=== PATIENT | female | born 1955 | race Caucasian/White ===

== ENCOUNTER → 2018-05-11 15:10 | Outpatient (CLI) | payer OTHER, SELFPAY | PROVIDERS: Family Provider Family Medicine; PCP Family Medicine; Visit Provider Nurse Practitioner Women's Health | DX: Z12.31 Encounter for screening mammogram for malignant neoplasm of breast (principal) | CPT/HCPCS: 77063; 77067 ==

== ENCOUNTER → 2018-07-24 14:36 | Outpatient (CLI) | payer OTHER, SELFPAY ==
--- NOTE | 2018-07-24 14:38 | US_ITS ---
STUDY: RENAL ULTRASOUND - COMPLETE REASON FOR EXAM: Female, 63 years old. Urinary retention, neurogenic bladder TECHNIQUE: Ultrasound evaluation of the kidneys was performed with real-time and static alvarez-scale imaging. COMPARISON: None. FINDINGS: RIGHT KIDNEY: Normal location of the right kidney, which is normal in size. The right kidney measures 9.3 cm. There is a normal cortex of the right kidney. The renal cortex measures 1.1 cm. There is no right renal mass or cyst. 2 small nonobstructing renal calculi, largest measuring 6 mm. There is no right hydronephrosis. DISTAL RIGHT URETER: There is non-visualization of the distal right ureter. There is no demonstrated right ureterovesical junction calculus. There is a visualized right ureteral jet. LEFT KIDNEY: Normal location of the left kidney, which is normal in size. The left kidney measures 8.7 cm. There is a normal cortex of the left kidney. The renal cortex measures 1.0 cm. Midpole anechoic cyst measuring 1.5 cm. 2 calculi, largest measuring 4 mm. No obstruction. There is no left hydronephrosis. DISTAL LEFT URETER: There is non-visualization of the distal left ureter. There is no demonstrated left ureterovesical junction calculus. There is a visualized left ureteral jet. BLADDER: The distended urinary bladder has a volume of 300 ml. The empty urinary bladder has a volume of 261 ml. There is trabeculation with thickening of the wall of the urinary bladder. There is no demonstrated mass within the urinary bladder. There are no demonstrated bladder calculi. US/Kidney and Bladder IMPRESSION: Significant postvoid residual. Wall thickening with bladder wall trabeculation. Bilateral nonobstructing renal calculi. Anechoic left renal cyst Electronically Signed: Francisco Glass DO at 14:21 EDT Tel , Service support ,
== END ==
PROVIDERS: Family Provider Family Medicine; PCP Family Medicine; Referring Provider Urology; Visit Provider Urology
DX: N31.9 Neuromuscular dysfunction of bladder, unspecified (principal); R33.9 Retention of urine, unspecified
CPT/HCPCS: 76770

== ENCOUNTER → 2018-08-09 16:39 | Outpatient (CLI) | payer OTHER, SELFPAY ==
--- NOTE | 2018-08-09 16:44 | EKG12_ITS ---
Test Reason : CARDIAC ARRHYTHMIA Blood Pressure : / mmHG Vent. Rate : 095 BPM Atrial Rate : 095 BPM P-R Int : 154 ms QRS Dur : 086 ms QT Int : 366 ms P-R-T Axes : 060 037 063 degrees QTc Int : 459 ms Sinus rhythm with frequent Premature ventricular complexes Otherwise normal ECG Confirmed by ZHANG BAKER, VLADIMIR ([id number]), film or videotape editor ANTOINETTE FRANCISCO ([id number]) on 08/10/2018 9:00:55 AM Referred By: Jessica Christianson Confirmed By:VLADIMIR HOLCOMB MD
== END ==
PROVIDERS: Family Provider Family Medicine; PCP Family Medicine; Referring Provider Urology; Visit Provider Urology
DX: I49.9 Cardiac arrhythmia, unspecified (principal)
CPT/HCPCS: 93005

== ENCOUNTER → 2019-03-26 | Outpatient (CLI) | payer OTHER, SELFPAY ==
--- NOTE | 2019-03-26 14:58 | US_ITS ---
STUDY: RENAL ULTRASOUND - COMPLETE REASON FOR EXAM: Female, 63 years old. Hydronephrosis TECHNIQUE: Ultrasound evaluation of the kidneys was performed with real-time and static alvarez-scale imaging. COMPARISON: Renal ultrasound from 07/23/2018 FINDINGS: RIGHT KIDNEY: Normal location of the right kidney, which is normal in size. The right kidney measures 13.4 x 8 x 7.6 cm. The renal cortex measures 0.6 cm. There are multiple right renal anechoic cystic areas . Compared to prior examination when the right kidney demonstrated normal reniform morphology and no renal cysts. There are no definite right renal calculi. DISTAL RIGHT URETER: There is non-visualization of the distal right ureter. There is no demonstrated right ureterovesical junction calculus. There is a visualized right ureteral jet. LEFT KIDNEY: Normal location of the left kidney, which is normal in size. The left kidney measures 10.1 x 4.8 x 4.5 cm. There is a normal cortex of the left kidney. The renal cortex measures 1.2 cm. There are multiple left renal cysts largest measuring 1.6 x 1.8 x 1.4 cm and additional measuring 1.2 x 1.2 x 0.7 cm. There are no left renal calculi. There is no left hydronephrosis. DISTAL LEFT URETER: There is non-visualization of the distal left ureter. There is no demonstrated left ureterovesical junction calculus. There is a visualized left ureteral jet. BLADDER: The distended urinary bladder has a volume of 374 ml. There is a normal wall thickness of the distended urinary bladder. There is no demonstrated mass within the urinary bladder. There are no demonstrated bladder calculi. US/Kidney and Bladder IMPRESSION: new right renal cortical thinning with also new anechoic cystic areas concerning for underlying marked hydronephrosis and dilated calyces. This is new from comparison renal ultrasound from 2018. Right ureteral jet is visualized however correlation with repeat CT abdomen and pelvis recommended. Multiple anechoic left renal simple appearing cysts. Electronically Signed: Marquis Cunningham, at 0:57 EDT Tel , Service support ,
== END | disposition home or self-care (01) ==
LOC: US 14:57
PROVIDERS: Family Provider Family Medicine; PCP Family Medicine; Referring Provider Urology; Visit Provider Urology
DX: N13.30 Unspecified hydronephrosis (principal)
CPT/HCPCS: 76770

== ENCOUNTER → 2019-04-11 | Outpatient (CLI) | payer OTHER, SELFPAY ==
--- NOTE | 2019-04-11 17:50 | CT_ITS ---
STUDY: CT ABDOMEN AND PELVIS WITHOUT CONTRAST REASON FOR EXAM: Female, 64 years old. Hydronephrosis RADIATION DOSAGE (If Supplied By Facility): CTDIvol = ( 7.03 ) mGy, DLP = ( 314.43 ) mGycm TECHNIQUE: Transaxial images were obtained from the dome of the diaphragm to the symphysis pubis without oral contrast, and without intravenous contrast. Sagittal and coronal images were reconstructed. Individualized dose optimization techniques were used for this CT. COMPARISON: None. FINDINGS: The visualized lung bases are unremarkable. The visualized portions of the heart are within normal limits. Normal liver. Normal gallbladder and extrahepatic biliary system. Normal spleen. Normal pancreas. Normal bilateral adrenal glands. Large parapelvic cysts or hydronephrosis of the right kidney. Extrarenal pelvis and probable upper pole parapelvic 1.3 cm cyst in the left kidney. Prominent hiatal hernia. Normal small intestine. Diffuse moderate fecal retention in the colon. Questionable rectal wall thickening. The appendix is visualized and appears normal. Normal abdominal aorta. Normal inferior vena cava. Normal retroperitoneum. Mild wall thickening of the urinary bladder. Normal abdominal wall. There is sacral injury with presacral soft tissue density, of questionable age. Mild degenerative vertebral changes and scoliosis. CT/Abdomen/Pelvis without Cont IMPRESSION: Large parapelvic cysts versus hydronephrosis of the right kidney. Extrarenal pelvis and probable upper pole parapelvic cyst in the left kidney. Hiatal hernia. Diffuse colonic fecal retention. Possible rectal wall thickening. Sacral injury of questionable age. Mild wall thickening of the urinary bladder. Electronically Signed: Shay Mondragon DO at 23:26 EDT Tel [phone], Service support ,
== END | disposition home or self-care (01) ==
PROVIDERS: Family Provider Family Medicine; PCP Family Medicine; Referring Provider Urology; Visit Provider Urology
DX: N28.1 Cyst of kidney, acquired (principal); N13.30 Unspecified hydronephrosis
CPT/HCPCS: 74176

== ENCOUNTER → 2019-04-30 | Outpatient (CLI) | payer OTHER, SELFPAY ==
[2019-04-24 14:36] VITALS: BMI 24.7
== END | disposition home or self-care (01) ==
LOC: PSN 13:56
PROVIDERS: Family Provider Family Medicine; PCP Family Medicine; Referring Provider Internal Medicine Cardiovascular Disease; Visit Provider Internal Medicine Cardiovascular Disease
DX: I49.3 Ventricular premature depolarization (principal); I10 Essential (primary) hypertension
CPT/HCPCS: 93225; 93226

== ENCOUNTER → 2019-05-04 13:55 | Outpatient (CLI) | payer OTHER, SELFPAY ==
[2019-04-24 14:36] VITALS: BMI 24.7
--- NOTE | 2019-05-04 13:56 | ECHOD_ITS ---
Reason For Study: Arrhythmia Procedure This was a 2D Doppler, Color Flow transthoracic echocardiogram. Myocardial strain analysis was performed in this exam to aid in the assessment of cardiac function. Exam performed in department. Left Ventricle Normal size and thickness. The estimated ejection fraction is 45-50 %. Stage 1 diastolic dysfunction. There is mild global hypokinesis of the left ventricle. Right Ventricle Normal size and thickness. Normal systolic function. Atria The left atrium is mildly enlarged. Normal right atrium. Normal atrial septum. Mitral Valve The mitral valve is structurally normal. No prolapse or stenosis seen. Trivial mitral valve insufficiency. Tricuspid Valve Normal tricuspid valve. Trivial tricuspid valve insufficiency. Right ventricular systolic pressure estimated to be 22 mmHg. Aortic Valve Trisinus/trileaflet aortic valve. Normal aortic valve. Pulmonic Valve Normal pulmonic valve. Trivial pulmonic valve insufficiency. Great Vessels Normal aortic root. Normal arch. Normal inferior vena cava. Inferior vena cava collapse with sniff. Pericardium/Pleural No pericardial effusion. MMode/2D Measurements & Calculations LVIDd: 4.6 cm IVSd: 1.0 cm Ao root diam: 2.8 cm LVIDs: 3.5 cm LVPWd: 1.1 cm RVDd: 3.2 cm FS: 24.2 % LAV(MOD-bp): 65.0 ml EDV(MOD-sp4): 99.0 ml EDV(MOD-sp2): 81.4 ml LAV(MOD-bp) Indexed: 34.3 ml/m2 ESV(MOD-sp4): 52.0 ml EF(MOD-sp2): 43.0 % LAV(MOD-sp2): 46.3 ml EF(MOD-sp4): 47.5 % LAV(MOD-sp4): 74.5 ml SV(MOD-sp4): 47.0 ml SV(MOD-sp2): 35.0 ml LA A4 area: 23.0 cm2 LA dimension(2D): 3.8 cm RA A4 area: 11.9 cm2 Doppler Measurements & Calculations MV E max reddy: 71.0 cm/sec Lat Peak E' Reddy: 5.2 cm/sec Med Peak E' Reddy: 4.1 cm/sec MV A max reddy: 104.6 cm/sec E/E' lat: 13.6 E/E' med: 17.2 MV E/A: 0.68 Ao V2 max: 134.5 cm/sec LV V1 max: 89.4 cm/sec PA V2 max: 79.2 cm/sec Ao max P.2 mmHg LV V1 max P.2 mmHg TR max reddy: 206.9 cm/sec TR max P.1 mmHg Interpretation Summary The estimated ejection fraction is 45-50 %. Stage 1 diastolic dysfunction. There is mild global hypokinesis of the left ventricle. The left atrium is mildly enlarged. Trivial mitral valve insufficiency. Trivial tricuspid valve insufficiency. Right ventricular systolic pressure estimated to be 22 mmHg. There is no comparison study available. Ordering Physician: Moustapha Rogers Referring Physician: Jose L De La Cruz Performed By: Kiki Sainz RDCS
== END ==
PROVIDERS: Family Provider Family Medicine; PCP Family Medicine; Referring Provider Internal Medicine Cardiovascular Disease; Visit Provider Internal Medicine Cardiovascular Disease
DX: Z01.810 Encounter for preprocedural cardiovascular examination (principal); I12.9 Hypertensive chronic kidney disease with stage 1 through stage 4 chronic kidney disease, or unspecified chronic kidney disease; I49.3 Ventricular premature depolarization; N18.9 Chronic kidney disease, unspecified
CPT/HCPCS: 93306

== ENCOUNTER → 2019-05-08 13:07 | Outpatient (CLI) | payer OTHER, SELFPAY ==
[2019-04-24 14:36] VITALS: BMI 24.7
--- NOTE | 2019-05-08 13:09 | STE_ITS ---
Reason For Study: HTN, ARRHYTHMIA, PRE-OP Stress Results Protocol: Dobutamine Stress Echocardiogram Maximum Predicted HR: 155 bpm Target HR: 132 bpm % Maximum Predicted HR: 86 % Heart Stage Duration Rate BP Dose Comment (mm:ss) (bpm) 1 NTG 0.4 MG SL GIVEN @ 1335 BP 183/103, 1 NTG 0.4 MG SL GIVEN BASELINE 82 159/90 AT 1342 BP 165/105, 1 NTG O.4 MG SL GIVEN AT 1355 BP 171/91 PER ORDERS DSE- 10 MCG 3:34 75 188/93550.00NO SX DSE- 20 MCG 3:14 134 171/99952.00NO SX RECOVERY 89 178/96 DENIES COMPLAINT. RARE PVCS, VENTRICULAR TRIGEMINY. Stress Duration: 6:48 mm:ss Maximum Stress HR: 134 bpm Baseline Echocardiogram Findings The estimated ejection fraction is 65 %. Stress Echo Wall motion Data Resting WM Intermediate WM Stress WM Resting Wall Motion Wall Motion Stress No regional wall motion No regional wall motion abnormalities noted. abnormalities noted. EKG Data The baseline ECG displays normal sinus rhythm. The patient was titrated from 10 mcg to a maximum of 20 mcg of dobutamine during the stress. The maximum heart rate attained was 134 beats per minute. This was 86% of maximum predicted heart rate. At peak infusion, upsloping ST changes only were noted, which did not meet the criteria for ischemia. No clinical angina was noted. Interpretation Summary The estimated ejection fraction is 65 %. Normal, adequate, dobutamine echocardiogram. Negative for ischemia by EKG and echocardiographic criteria. No anginal symptoms noted. Rare PVCs noted. Hypertensive blood pressure response to dobutamine. Final LVEF of 75%. Test terminated due to attainment of target heart rate. No complications. Ordering Physician: Moustapha Rogers Referring Physician: Moustapha Rogers Performed By: Kiki Sainz RDCS
== END ==
PROVIDERS: Family Provider Family Medicine; PCP Family Medicine; Referring Provider Internal Medicine Cardiovascular Disease; Visit Provider Internal Medicine Cardiovascular Disease
DX: Z01.810 Encounter for preprocedural cardiovascular examination (principal); I10 Essential (primary) hypertension; I49.3 Ventricular premature depolarization
CPT/HCPCS: 93017; 93350; J7040; A4216

== ENCOUNTER → 2019-05-22 | Outpatient (CLI) | payer OTHER, SELFPAY ==
[2019-05-15 14:22] VITALS: BMI 25.0
[2019-05-22 17:52] LABS: Anion Gap 6 (5-15); BUN 30 mg/dL (7-18); BUN/Creat Ratio 17.6 RATIO (10-20); Calcium,Total 8.6 mg/dL (8.5-10.1); Chloride 108 mmol/L (98-107); EST Glomerular Filtration Rate 32 mL/min (>60); Est Glom Filt Rate - Afr Amer 39 mL/min (>60); Glucose 91 mg/dL (74-106); Sodium Level 143 mmol/L (136-145)
== END | disposition home or self-care (01) ==
LOC: MTLAB 15:51
PROVIDERS: Family Provider Family Medicine; PCP Family Medicine; Referring Provider Urology; Visit Provider Urology
DX: N13.30 Unspecified hydronephrosis (principal)
CPT/HCPCS: 36415; 80048

== ENCOUNTER 2019-05-29 06:02 | Day surgery (SDC) | payer OTHER, SELFPAY ==
[2019-05-15 14:22] VITALS: BMI 25.0
[2019-05-29 06:42] VITALS: BP 141/67; PULSE 59; RESP 16; TEMP 37.1; O2SAT 99; BMI 24.9
[2019-05-29] MEDS: Lactated Ringers 1,000 ML 100 ML IV (07:00)
[2019-05-29] MEDS: Cefazolin 2 GM in 0.9% Normal Saline 100 ML IV (07:30)
--- NOTE | 2019-05-29 07:35 | OP.PCM_ITS ---
Problem List (1) Neurogenic bladder Status: Acute (2) Urinary retention Status: Acute (3) Hydronephrosis of right kidney Status: Acute Report of Operation Date of Procedure: 05/29/19 Pre-Operative Diagnosis: right hydronephrosis, neurogenic bladder, urinary retention Post-Operative Diagnosis: right ureteral stricture with hydroureteronephrosis, neurogenic bladder and urinary retention Surgery/Procedure Performed:: cystoscopy, bilateral retrograde pyelograms, right Description of Surgical Findings:: Right ureteral stricture likely 1.5 cm in length, at the area of the pelvic brim. Unable to fill the kidney with contrast for full retrograde pyelogram. Unable to pass wire through the stricture. 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 She has a neurogenic bladder as a result of this. I have been following her with annual renal ultrasounds. She had a normal ultrasound in May 2018. She was subsequently admitted to the hospital at an outlying institution in January. On follow-up, her renal imaging showed concern for right-sided hydronephrosis but due to her creatinine I was unable to obtain imaging with contrast. Following cardiac clearance, we proceeded with retrograde pyelograms today. Informed consent was obtained. Patient was taken to the operating room and placed on the operating room table. Anesthesia monitored the head, neck, airway, IV access and vital signs throughout the case. Once anesthesia was appropriately administered the patient was placed into dorsal lithotomy position and was prepped and draped in usual sterile fashion. A cystourethroscopy revealed a small bladder without mass. The ureteral orifices were located on the area of the trigone. I was unable to coapt the UO with a 8 Salvadorean cone-tip catheter, and inserted a 5 Salvadorean whistle- tip into the distal ureter. Contrast was injected in retrograde fashion revealing a stricture of the right ureter at the area of the pelvic brim. The strictured area was approximately 1.5 cm in length. I next attempted to pass a 0.035 Glidewire through the stricture and was unable to do so. A left-sided retrograde pyelogram was performed revealing no evidence of ureteral narrowing and the calyces were nice and sharp and an extrarenal pelvis was present. At this time the patient's bladder was emptied and the case was terminated. She was taken to the recovery room in good condition. There were no complications during the procedure. - Complications None - Admit VTE Documentation VTE Present on Admission: Yes VTE Mechan Device Prophylaxis: SCD's VTE Pharm Prophylaxis ordered?: No Reason prophylaxis not ordered:: Treatment Not Indicated
--- NOTE | 2019-05-29 07:37 | DCINST_ITS ---
Discharge Diet: No Restrictions Discharge Activity: May not drive while taking narcotic pain medications. Call your doctor if you observe: Fever of 101 or Higher, Shortness of breath, Chest pain, Calf discomfort, Uncontrolled pain Allergies/Adverse Reactions: Allergies sulfamethoxazole [From Bactrim] Allergy (Mild, Verified 05/22/19 14:54) itchy, swollen lips trimethoprim [From Bactrim] Allergy (Mild, Verified 05/22/19 14:54) itchy, swollen lips Medications to take at Discharge colestipol 1 gram tablet 2 g PO BID tab 05/11/18 cranberry 400 mg capsule 400 mg PO DAILY 05/11/18 lactobacillus combination no.9 4 billion cell capsule 4,000 mmu cells PO QDAY 05/11/18 Cephalexin [Keflex] 250 mg PO DAILY 04/24/19 carvedilol 25 mg tablet 25 mg PO BID #60 tab 04/24/19 Primary Care Physician: Jose L De La Cruz [Primary Care Provider] - Test Results: Test results from this visit will be discussed in further detail at your follow- up appointment, if applicable. Please Follow Up With: Jessica Christianson MD When: call for appt Proposed Discharge Date: 05/29/19
[2019-05-29 08:06] VITALS: BP 121/66; BP 141/67; PULSE 76; RESP 14; TEMP 36.3; O2SAT 98
[2019-05-29 08:15] VITALS: BP 133/70; BP 141/67; PULSE 72; RESP 14; O2SAT 97
[2019-05-29 08:24] VITALS: BP 141/67; BP 145/76; PULSE 71; RESP 14; TEMP 36.3; O2SAT 98
[2019-05-29 09:11] VITALS: BP 141/67; BP 160/56; PULSE 66; RESP 16; TEMP 36.9; O2SAT 99
== END 2019-05-29 09:27 | disposition home or self-care (01) ==
LOC: SDC 06:05 → AC 06:06
PROVIDERS: Family Provider Family Medicine; PCP Family Medicine; Referring Provider Urology; Visit Provider Urology
PROC: 0TJ98ZZ Inspection of Ureter, Via Natural or Artificial Opening Endoscopic (ICD-10-PCS; CPT 52352; principal; 2019-05-29 07:20)
DX: N13.1 Hydronephrosis with ureteral stricture, not elsewhere classified (principal); N31.9 Neuromuscular dysfunction of bladder, unspecified; R33.8 Other retention of urine; E78.00 Pure hypercholesterolemia, unspecified; I10 Essential (primary) hypertension; Z85.038 Personal history of other malignant neoplasm of large intestine; Z86.718 Personal history of other venous thrombosis and embolism; Z87.442 Personal history of urinary calculi; Z79.899 Other long term (current) drug therapy
CPT/HCPCS: 00910; 52005; 76000; J7120; C1758; C1769; J2405

== ENCOUNTER → 2020-05-22 12:01 | Outpatient (CLI) | payer OTHER, MEDICARE, SELFPAY ==
--- NOTE | 2020-05-22 12:05 | BI_ITS ---
MAMMOGRAPHY - BILATERAL SCREENING REASON FOR EXAM: Female, 65 years old. Routine annual screening examination. PERTINENT HISTORY: Non-contributory. TECHNIQUE: Digital bilateral breast danielle (3D mammographic acquisition) in the CC and MLO projections. 2-D mediolateral oblique (MLO) and craniocaudad (CC) views of both breasts were obtained. CAD: Full Field Digital Mammography with Computer Added Detection was performed. COMPARISON: Comparison is made with prior study dated 05/11/2018 and 05/03/2017. FINDINGS: Breast Composition: There are scattered areas of fibroglandular density. There are no dominant masses or suspicious calcifications. No other significant abnormalities are identified. There has been no significant change since the prior study. BI/SCREEN MAMM (CAD) W/DANIELLE BILAT IMPRESSION: Stable bilateral screening mammogram. Yearly follow-up mammogram recommended. (A) ASSESSMENT CATEGORY: BIRADS Category 1: Negative. A letter regarding these results will be sent to the patient by the facility within 30 days. Approximately 10% of breast cancers are not detected by mammography. A normal mammogram should not delay biopsy of a clinically suspicious abnormality. [id number] Electronically Signed: Rikki Bustamante, at 13:09 EDT , Service support ,
== END ==
PROVIDERS: Family Provider Family Medicine; PCP Family Medicine; Referring Provider Nurse Practitioner Women's Health; Visit Provider Nurse Practitioner Women's Health
DX: Z12.31 Encounter for screening mammogram for malignant neoplasm of breast (principal)
CPT/HCPCS: 77063; 77067

== ENCOUNTER → 2020-12-18 13:44 | Outpatient (CLI) | payer MEDICARE, SELFPAY ==
[2020-06-10 09:52] VITALS: BMI 24.9
--- NOTE | 2020-12-18 14:00 | US_ITS ---
STUDY: RENAL ULTRASOUND - COMPLETE REASON FOR EXAM: Female, 65 years old. UTI/FLANK PAIN TECHNIQUE: Ultrasound evaluation of the kidneys was performed with real-time and static alvarez-scale imaging. COMPARISON: None. FINDINGS: RIGHT KIDNEY: Normal location of the right kidney, which is normal in size. The right kidney measures 13.4 x 8.0 x 7.6 cm. There is diffuse thinning of the renal cortex. The renal cortex measures 0.6 cm. Multiple round anechoic structure consistent with simple renal cysts demonstrate largest measuring 7.5 x 7.1 x 5.8 cm. Differential diagnosis includes chronic severe hydronephrosis. These findings are stable in the interval. There are no right renal calculi. There is no right hydronephrosis. DISTAL RIGHT URETER: There is non-visualization of the distal right ureter. There is no demonstrated right ureterovesical junction calculus. There is a visualized right ureteral jet. LEFT KIDNEY: Normal location of the left kidney, which is normal in size. The left kidney measures 10.1 x 4.8 x 4.5 cm. There is a normal cortex of the left kidney. The renal cortex measures 1.2 cm. Within the left kidney and there are 2 round anechoic structure consistent with cysts, measuring 1.6 x 1.8 x 1.4 cm and 1.2 x 1.2 x 0.7 cm. There are no left renal calculi. There is no left hydronephrosis. DISTAL LEFT URETER: There is non-visualization of the distal left ureter. There is no demonstrated left ureterovesical junction calculus. There is a visualized left ureteral jet. BLADDER: The urinary bladder has a volume of 374.2 ml There is a normal wall thickness of the distended urinary bladder. There is no demonstrated mass within the urinary bladder. There are no demonstrated bladder calculi. US/Kidney and Bladder IMPRESSION: Chronic severe right-sided hydronephrosis versus large cysts within the right kidney as described above and largest cystic structure measuring 7.5 x 7.1 x 5.8 cm. Thinning of the right renal cortex suggestive of renal atrophy, stable in the interval. Left-sided renal cysts as described. Otherwise unremarkable left kidney. Electronically Signed: Samina Bello MD at 1:59 EDT , Service support ,
== END ==
PROVIDERS: PCP Family Medicine; Referring Provider Urology; Visit Provider Urology
DX: N39.0 Urinary tract infection, site not specified (principal); R10.9 Unspecified abdominal pain
CPT/HCPCS: 76770; 87493

== ENCOUNTER → 2022-01-19 | Outpatient (CLI) | payer MEDICARE, SELFPAY ==
--- NOTE | 2022-01-19 11:56 | US_ITS ---
STUDY: RENAL ULTRASOUND - COMPLETE REASON FOR EXAM: Female, 66 years old. UTI TECHNIQUE: Ultrasound evaluation of the kidneys was performed with real-time and static alvarez-scale imaging. COMPARISON: 12/18/2020 FINDINGS: RIGHT KIDNEY: Normal location of the right kidney, which is hypertrophic. The right kidney measures 16.9 x 7.7 x 8 cm. There is diffuse thinning of the renal cortex. The renal cortex measures 0.8 cm. There is dilatation of the renal calyces consistent with long-standing hydronephrosis and obstruction. Although the knock up assembler states there is no hydronephrosis, a CT scan from 2019 suggests otherwise at that time there was already significant cortical thinning and distention of the calyces, UPJ and right ureter. DISTAL RIGHT URETER: There is non-visualization of the distal right ureter. There is no demonstrated right ureterovesical junction calculus. There is a visualized right ureteral jet. LEFT KIDNEY: Normal location of the left kidney, which is normal in size. The left kidney measures 10.7 x 4.0 x 6.5 cm. There is a normal cortex of the left kidney. The renal cortex measures 1.7 cm. There are 2 separate simple cysts, larger measures 2.6 cm There are no left renal calculi. There is an extra-renal pelvis of the left kidney. There is no distention of the renal calyces. DISTAL LEFT URETER: There is non-visualization of the distal left ureter. There is no demonstrated left ureterovesical junction calculus. There is a visualized left ureteral jet. AORTA: There is no elongation or tortuosity of the abdominal aorta. I.V.C.: The IVC is patent. BLADDER: The bladder is incompletely distended US/Kidney and Bladder IMPRESSION: Right kidney is hypertrophic and shows long-standing dilatation of the calyces and UPJ unchanged from a CT scan from 2019. There is diffuse cortical thinning. Etiology for the long-standing obstruction is not clear on this study. The knock up assembler notes 2 separate simple cysts but I suspect these are the dilated calyces. Extrarenal pelvis in the left kidney with simple left renal cysts. No obstructive uropathy in the left kidney. Electronically Signed: Lamont Matson MD at 16:33 EDT ,
== END | disposition home or self-care (01) ==
LOC: US 11:55
PROVIDERS: PCP Family Medicine; Referring Provider Urology; Visit Provider Urology
DX: N39.0 Urinary tract infection, site not specified (principal)
CPT/HCPCS: 76770

== ENCOUNTER → 2022-04-02 | Outpatient (CLI) | payer MEDICARE, SELFPAY ==
--- NOTE | 2022-04-02 13:05 | BI_ITS ---
MAMMOGRAPHY - BILATERAL SCREENING REASON FOR EXAM: Female, 67 years old. Routine annual screening examination. PERTINENT HISTORY: Non-contributory. TECHNIQUE: Digital bilateral breast danielle (3D mammographic acquisition) in the CC and MLO projections. 2-D mediolateral oblique (MLO) and craniocaudad (CC) views of both breasts were obtained. CAD: Full Field Digital Mammography with Computer Added Detection was performed. COMPARISON: Comparison is made with prior study dated 05/22/2020 and 05/11/2018. FINDINGS: Breast Composition: There are scattered areas of fibroglandular density. There are no dominant masses or suspicious calcifications. No other significant abnormalities are identified. There has been no significant change since the prior study. BI/SCRN MAMM (CAD)W/DANIELLE BILAT IMPRESSION: Stable bilateral screening mammogram. Yearly follow-up mammogram recommended. (A) ASSESSMENT CATEGORY: BIRADS Category 1: Negative. A letter regarding these results will be sent to the patient by the facility within 30 days. Approximately 10% of breast cancers are not detected by mammography. A normal mammogram should not delay biopsy of a clinically suspicious abnormality. [id number] Electronically Signed: Rikki Bustamante MD at 14:07 EDT ,
== END | disposition home or self-care (01) ==
LOC: OPBI 13:03
PROVIDERS: PCP Family Medicine; Referring Provider Nurse Practitioner Women's Health; Visit Provider Nurse Practitioner Women's Health
DX: Z12.31 Encounter for screening mammogram for malignant neoplasm of breast (principal)
CPT/HCPCS: 77063; 77067

== ENCOUNTER 2023-06-07 20:21 | Inpatient (IN) | payer MEDICARE, SELFPAY ==
[2023-06-07 21:19] VITALS: BMI 24.9
--- NOTE | 2023-06-07 21:30 | HP.PCM_ITS ---
HPI - General General Date of Admission: 06/07/23 Date of Service: 06/08/23 Chief Complaint: Here for rehabilitation. HPI Narrative CUAUHTEMOC MARIE, is a 68 Female who presents with followin05/31/2023 Admit to [facility] with fall, right leg injury. Right foot drop, walks with walker, fell. Right leg brace caused bleeding puncture wound. Right lower extremity pain 04/04. X-ray shows right tibia/fibula fracture. PT/OT, Orthopedics right tibia/fibula fracture. Cefazolin for right leg puncture wound. 06/01/2023 Prepare for surgery. 06/02/2023 Orthopedics performed insertion nail/oscar intramedullary right tibia. 06/02/2023 Wound VAC applied. 06/03/2023 Infectious Disease recommended stopping Cefazolin, start Vancomycin, Ceftriaxone. No cultures sent from admission. 06/04/2023 Continue Vancomycin, Ceftriaxone. 06/05/2023 Continue Vancomycin, Ceftriaxone. Heparin 5000 units sc q12h for DVT prophylaxis. 06/07/2023 Admit to TCU with debility, here for rehabilitation, strengthening, intravenous antibiotics, prior to discharge home with . [facility] Medical History (Updated 06/07/23 @ 21:[address] Jesse Landry MD) Anal cancer Chronic kidney disease (CKD) Essential hypertension Fecal incontinence Fracture of right tibia and fibula GERD (gastroesophageal reflux disease) History of rectal cancer Hydronephrosis of right kidney Hypertension one functioning kidney PVCs (premature ventricular contractions) radiation induced sarcoma Right foot drop Home Medications colestipol 1 gram tablet 2 g PO BID Cholesterol 05/11/18 [History Last Taken Unknown] lactobacillus combination no.9 4 billion cell capsule (Adult 50 Plus Probiotic) 4,000 mmu cells PO QDAY Supplement 05/11/18 [History Last Taken Unknown] valsartan 40 mg tablet 40 mg PO DAILY Blood pressure 06/10/20 [History Last Taken Unknown] ascorbate calcium (vitamin C) 500 mg tablet 500 mg PO DAILY Supplement 10/21/22 [History Last Taken Unknown] cholecalciferol (vitamin D3) 25 mcg (1,000 unit) capsule 25 mcg PO DAILY Supplement 10/21/22 [History Last Taken Unknown] ferrous sulfate 27 mg iron tablet 27 mg PO DAILY supplent 10/21/22 [History Last Taken Unknown] magnesium 200 mg tablet 200 mg PO DAILY Supplement 10/21/22 [History Last Taken Unknown] omeprazole 40 mg capsule,delayed release 40 mg PO DAILY Supplement 10/21/22 [History Last Taken Unknown] carvedilol 25 mg tablet (Coreg) 6.25 mg PO BID Blood pressure 06/07/23 [History Last Taken Unknown] ceftriaxone 2 gram intravenous solution 2 g IV Q24H Osteomyelitis 06/07/23 [History Last Taken Unknown] cyanocobalamin (vitamin B-12) 100 mcg tablet 100 mcg PO DAILY Supplement 06/07/23 [History Last Taken Unknown] d-mannose 500 mg capsule 500 mg PO BID Bladder 06/07/23 [History Last Taken Unknown] ferrous sulfate 325 mg (65 mg iron) tablet (FeroSul) 325 mg PO DAILY Supplement 06/07/23 [History Last Taken Unknown] heparin (bovine) 5,000 unit/mL injection solution 5,000 unit .Route Q12H Anticoagulant 06/07/23 [History Last Taken Unknown] oxycodone 5 mg tablet 5 mg PO Q8H Pain 06/07/23 [History Last Taken Unknown] zinc sulfate 50 mg zinc (220 mg) capsule (Zinc-220) 50 mg PO DAILY Supple 06/07/23 [History Last Taken Unknown] Allergy/AdvReac Type Severity Reaction Status Date / Time sulfamethoxazole Allergy Mild itchy, Verified 10/21/22 13:23 [From Bactrim] swollen lips trimethoprim [From Bactrim] Allergy Mild itchy, Verified 10/21/22 13:23 swollen lips Family History Mother Hypertension Dementia Father Diabetes Surgical History polyp removed from rectum port placement S/P dilation and curettage Social History (Updated 06/07/23 @ 21:[address] Jesse Landry MD) household members: spouse Smoking Status: Never smoker alcohol intake: current details: wine 3-4 times per week substance use type: does not use caffeine: Yes what type of physical activity do you participate in: bicycling and aerobics frequency: 3-4 times per week seatbelt use: always do you feel safe at home: Yes additional social history: - Red- Retired (works part-time) Patient works at [employer] Constitutional Constitutional: Denies chills, fever(s) or weight gain ENT HEENT: Denies headache(s), nasal congestion or nasal discharge Cardiovascular Cardiovascular: Denies chest pain or palpitations Respiratory/Chest Respiratory/Chest: Denies cough, excessive phlegm production or shortness of breath with exertion Gastrointestinal Gastrointestinal: Denies abdominal pain, nausea or vomiting Genitourinary Genitourinary: Denies dysuria Musculoskeletal Musculoskeletal: Denies joint pain or joint swelling Integumentary Integumentary: Denies rash or wounds Neurologic Neurologic: Denies focal weakness, numbness or tingling Psychiatric Psychiatric: Denies anxiety, auditory hallucinations, depression, homicidal ideation or suicidal ideation Physical Exam Const alert General Appearance: cooperative HEENT normocephalic Eyes PERRL and EOMs intact bilaterally Neck supple, no JVD and no carotid bruits Resp normal respiratory effort, normal air movement and clear to auscultation bilaterally Cardio regular rate and regular rhythm GI normal to inspection, nondistended, normoactive bowel sounds, non-tender and n on-distended Bladder / Kidney Exam: catheter in place urethral Extremity normal capillary refill Extremity Narrative: Right lower extremity splint/BERNABE wrap/wound VAC, right anterior thigh dressing. Right upper extremity PICC. General Extremity: Negative for edema Skin no rashes or lesions noted General Skin Exam: no breakdown Psych affect normal Appearance: appropriate Results Lab / Micro Data 06/08/23 05:39 06/08/23 05:39 Assessment & Plan Assessment/Plan (1) Debility: (2) Fracture of right tibia and fibula: (3) Puncture wound of right leg excluding thigh: (4) Chronic kidney disease (CKD): (5) GERD (gastroesophageal reflux disease): (6) Hypertension: (7) History of rectal cancer: (8) Right foot drop: PLAN: Plan 68 year old female with below past medical history hospitalized for right tibia/fibula fracture, underwent insertion nail/oscar intramedullary right tibia 06/02/2023, complicated by right lower extremity puncture wound, admitted to TCU with debility, here for rehabilitation, strengthening, intravenous antibiotics, prior to discharge home with . * Debility - PT/OT. * Pain - Tylenol 1000mg q8, Tramadol 50mg q6h prn pain (1-5), Oxycodone 5mg q4h prn pain (6-10). * Bowel - Colestipol 2gm bid. * Adult immunization - Administer pneumonia vaccine, covid19 vaccine, flu vaccine as appropriate. * DVT prophylaxis - Lovenox 30mg sc daily. * Hypertension - Coreg 6.25mg bid, Losartan 25mg daily. * Iron deficiency anemia - Ferrex 150mg daily, Vitamin C 500mg daily. * Vitamin B12 deficiency - B12 1000mcg daily. * Hypomagnesemia - Magnesium chloride 128mg daily. * GERD - Pantoprazole 40mg daily. * Vitamin D deficiency - D3 25mcg daily. * Zinc deficiency - Zinc 50mg daily. * Right lower extremity puncture wound (Proteus Mirabilis) - Ceftriaxone 2gm iv q24h thru 07/15/2023, was on Vancomycin, but not admitting orders, consult Dr. Pedroza. * Urinary retention - straight caths 5 times daily at home, has indwelling sanford catheter, continue indwelling due to debilitated status. * Chronic right buttock pressure ulcer - Healed.
[2023-06-07 21:31] VITALS: BP 146/69; PULSE 84; RESP 16; TEMP 37.3; O2SAT 95; BMI 23.3
[2023-06-07] MEDS: Acetaminophen 500 MG Tablet 1000 MG PO (23:51)
[2023-06-07] MEDS: Carvedilol 6.25 MG Tablet PO (23:51)
[2023-06-08] MEDS: Colestipol 1 GM TABLET 2 GM PO ×3 (01:01→22:25)
[2023-06-08 05:55] LABS: Absolute Lymphocyte Count 1.06 X10^3/uL (0.83-4.51); Absolute Neutrophil Count 4.4 X10^3/uL (2.0-7.7); Basophil# 0.03 X10^3/uL; Basophil% 0.5 % (0-1); Eosinophil# 0.23 X10^3/uL; Eosinophils% 3.6 % (0-5); Hematocrit 24.6 % (37-47); Hemoglobin 7.7 g/dL (12.0-15.0); Lymphocyte # 1.06 X10^3/ul (0.83-4.51); Lymphocyte % 16.5 % (19-41); Mean Corp Hgb Conc 31.3 g/dL (32-36); Mean Corpuscular Hgb 31.7 pg (27.0-32.0); Mean Corpuscular Volume 101.2 fL (81-99); Mean Platelet Vol. 10.6 fl (6.2-12.0); Monocyte# 0.66 X10^3/uL; Monocyte% 10.3 % (0-10); NRBC Flagged by Analyzer 0 % (0-5); Neutrophil # 4.42 X10^3/uL (2.7-7.7); Neutrophil % 68.6 % (47-70); Platelet Count 203 K/mm3 (150-450); RBC Distribution Width CV 12.9 % (11.6-14.6); RBC Distribution Width SD 48.6 fl (35.1-43.9); Red Blood Count 2.43 M/mm3 (4.2-5.4); White Blood Count 6.4 K/mm3 (4.4-11.0)
[2023-06-08] MEDS: Enoxaparin 30 MG/0.3 ML Syringe SC (06:24)
[2023-06-08] MEDS: Acetaminophen 500 MG Tablet 1000 MG PO ×3 (06:25→21:24)
[2023-06-08 06:37] LABS: Anion Gap 3 (5-15); BUN 16 mg/dL (7-18); BUN/Creat Ratio 14.4 RATIO (10-20); Calcium,Total 8.3 mg/dL (8.5-10.1); Chloride 111 mmol/L (98-107); Creatinine, Serum 1.11 mg/dL (0.55-1.02); EST Glomerular Filtration Rate 52 mL/min (>60); Est Glom Filt Rate - Afr Amer 63 mL/min (>60); Estimated Creatinine Clearance 51.73 ml/min; Glucose 104 mg/dL (74-106); Potassium 4.1 mmol/L (3.5-5.1); Sodium Level 141 mmol/L (136-145)
--- NOTE | 2023-06-08 08:04 | NURSING ---
dr pugh aware HGB 7.7, recheck in AM. new order to consult ID for gayle wound
[2023-06-08 08:55] VITALS: BP 107/46; PULSE 74; RESP 16; TEMP 36.7; O2SAT 97
[2023-06-08] MEDS: Cyanocobalamin 500 MCG Tablet 1000 MCG PO (08:55)
[2023-06-08] MEDS: Carvedilol 6.25 MG Tablet PO ×2 (08:55→17:40)
[2023-06-08] MEDS: Magnesium Chloride 64 MG Delay Rel.Tablet 128 MG PO (08:55)
[2023-06-08] MEDS: Losartan Potassium 25 MG Tablet PO (08:56)
[2023-06-08] MEDS: Pantoprazole Sodium 40 MG Tablet PO (08:56)
[2023-06-08] MEDS: Iron Polysaccharide Complex 150 MG CAPSULE PO (08:56)
[2023-06-08] MEDS: Cholecalciferol (VIT D3) 25 MCG TABLET (1,000 UNITS) PO (08:56)
[2023-06-08] MEDS: Ascorbic Acid 500 MG Tablet PO (08:56)
[2023-06-08] MEDS: Ceftriaxone 2 GM in 0.9% Normal Saline (50mL MB+) 50 ML IV (09:37)
[2023-06-08] MEDS: 0.9% Saline Lock 10 ML Syringe IV (09:37)
[2023-06-08] MEDS: Tuberculin,Purif.prot.deriv. 50 TU/ML Vial 0.1 ML ID (09:38)
--- NOTE | 2023-06-08 11:44 | NURSING ---
Loin Trimmer Note; Activity Asset: Derik Schulz prefers to be called Sammi. Sammi is independent in her choice of daily activities. Her family and friends will visits daily and bring her items she may need. She watches tv, reads and enjoys word search puzzles. She welcomes visits from the medical administrator and therapy dog when available. Staff will remind her of daily activities and respect her right to say no.
--- NOTE | 2023-06-08 13:50 | WOUNDNOTE ---
wound photo: right ischium
--- NOTE | 2023-06-08 15:45 | CON.PCM.ID_ITS ---
Assessment & Plan Assessment/Plan (1) Fracture of right tibia and fibula: (2) Puncture wound of right leg excluding thigh: PLAN: reviewed [place] records, labs, imaging, and ID notes. Plan is for ceftriaxone until 07/15/23. Will follow, thank you HPI Consult Data Date of Consult: 06/08/23 HPI Narrative Reason for Consultation: osteo HPI Narrative: CUAUHTEMOC MARIE, is a 68 F who presented as transfer from [place]. Admitted with fall, right leg injury. Found to have right tibia/fibula fracture. Taken to OR 06/02/2023 for insertion nail/oscar intramedullary right tibia. Seen by Dr. Niño with ID, changed to Vancomycin, Ceftriaxone. No intra-op cxs sent. Had wound cx in March with proteus from unrelated issue. Discharged on ceftriaxone with stop date 07/15 per [facility] note. Feeling ok, leg improving, no fever, no n/v/d. Full ROS performed and neg except as noted above. [facility] Medical History Anal cancer Chronic kidney disease (CKD) Essential hypertension Fecal incontinence Fracture of right tibia and fibula GERD (gastroesophageal reflux disease) History of rectal cancer Hydronephrosis of right kidney Hypertension one functioning kidney PVCs (premature ventricular contractions) radiation induced sarcoma Right foot drop Home Medications colestipol 1 gram tablet 2 g PO BID Cholesterol 05/11/18 [History Last Taken Unknown] lactobacillus combination no.9 4 billion cell capsule (Adult 50 Plus Probiotic) 4,000 mmu cells PO QDAY Supplement 05/11/18 [History Last Taken Unknown] valsartan 40 mg tablet 40 mg PO DAILY Blood pressure 06/10/20 [History Last Taken Unknown] ascorbate calcium (vitamin C) 500 mg tablet 500 mg PO DAILY Supplement 10/21/22 [History Last Taken Unknown] cholecalciferol (vitamin D3) 25 mcg (1,000 unit) capsule 25 mcg PO DAILY Supplement 10/21/22 [History Last Taken Unknown] ferrous sulfate 27 mg iron tablet 27 mg PO DAILY supplent 10/21/22 [History Last Taken Unknown] magnesium 200 mg tablet 200 mg PO DAILY Supplement 10/21/22 [History Last Taken Unknown] omeprazole 40 mg capsule,delayed release 40 mg PO DAILY Supplement 10/21/22 [History Last Taken Unknown] carvedilol 25 mg tablet (Coreg) 6.25 mg PO BID Blood pressure 06/07/23 [History Last Taken Unknown] ceftriaxone 2 gram intravenous solution 2 g IV Q24H Osteomyelitis 06/07/23 [History Last Taken Unknown] cyanocobalamin (vitamin B-12) 100 mcg tablet 100 mcg PO DAILY Supplement 06/07/23 [History Last Taken Unknown] d-mannose 500 mg capsule 500 mg PO BID Bladder 06/07/23 [History Last Taken Unknown] ferrous sulfate 325 mg (65 mg iron) tablet (FeroSul) 325 mg PO DAILY Supplement 06/07/23 [History Last Taken Unknown] heparin (bovine) 5,000 unit/mL injection solution 5,000 unit .Route Q12H Anticoagulant 06/07/23 [History Last Taken Unknown] oxycodone 5 mg tablet 5 mg PO Q8H Pain 06/07/23 [History Last Taken Unknown] zinc sulfate 50 mg zinc (220 mg) capsule (Zinc-220) 50 mg PO DAILY Supple 06/07 [History Last Taken Unknown] Allergy/AdvReac Type Severity Reaction Status Date / Time sulfamethoxazole Allergy Mild itchy, Verified 10/21/22 13:23 [From Bactrim] swollen lips trimethoprim [From Bactrim] Allergy Mild itchy, Verified 10/21/22 13:23 swollen lips Family History Mother Hypertension Dementia Father Diabetes Surgical History polyp removed from rectum port placement S/P dilation and curettage Social History household members: spouse Smoking Status: Never smoker alcohol intake: current details: wine 3-4 times per week substance use type: does not use caffeine: Yes what type of physical activity do you participate in: bicycling and aerobics frequency: 3-4 times per week seatbelt use: always do you feel safe at home: Yes additional social history: - Red- Retired (works part-time) Patient works at [employer] Physical Exam Const alert, oriented x3 and no apparent distress General Appearance: cooperative HEENT normocephalic and head/scalp atraumatic Eyes PERRL and EOMs intact bilaterally Neck supple and No nodes Resp normal air movement and clear to auscultation bilaterally Cardio regular rate and regular rhythm GI soft to palpation, non-tender and non-distended Extremity General Extremity: Negative for edema Skin Skin Narrative: RLE wrapped Neuro CN's II-XII intact bilaterally Lab / Micro Data Attestation: I reviewed the patient's lab results. 06/08/23 05:39 06/08/23 05:39 Labs: Laboratory Results - last 24 hr 06/08/23 05:39: WBC 6.4, RBC 2.43 L, Hgb 7.7 L, Hct 24.6 L, MCV 101.2 H, MCH 31.7, MCHC 31.3 L, RDW Std Deviation 48.6 H, RDW Coeff of Med 12.9, Plt Count 203, MPV 10.6, Immature Gran % (Auto) 0.500, Neut % (Auto) 68.6, Lymph % (Auto) 16.5 L, Coles % (Auto) 10.3 H, Eos % (Auto) 3.6, Baso % (Auto) 0.5, Absolute Neuts (auto) 4.4, Absolute Lymphs (auto) 1.06, Nucleated RBC % 0, Sodium 141, Potassium 4.1, Chloride 111 H, Carbon Dioxide 27.0, Anion Gap 3 L, BUN 16, C reatinine 1.11 H, Estim Creat Clear Calc 51.73, Est GFR (MDRD) Af Amer 63, Est GFR (MDRD) Non-Af 52 L, BUN/Creatinine Ratio 14.4, Glucose 104, Calcium 8.3 L Micro: Microbiology 06/07/23 22:45 Nasal Secretion SARS-CoV-2 Antigen (Rapid) - Final
--- NOTE | 2023-06-08 16:41 | CASEMGMT ---
Social Work Met with patient to complete initial assessment. Introduced self and role. Verified/updated contacts. Discussed at length pt's code status. pt confirms full code. Pt wishes to complete advanced directives. SW to complete once pt retrieves all contact information of agents and as time allows for this worker prior to DC. SW educated to [facility] insurance with [employer] 06/08 and continued stay is not guaranteed with each review. pt's goal is to return home with 's continued assistance. SW will continue to follow for DC planning. Breann Dhillon, CAB SUPERVISOR [employer] SUPERVISOR
[2023-06-08 17:41] VITALS: BP 124/59; PULSE 76
[2023-06-09] MEDS: Enoxaparin 30 MG/0.3 ML Syringe SC (05:46)
[2023-06-09] MEDS: Acetaminophen 500 MG Tablet 1000 MG PO ×3 (05:46→21:48)
[2023-06-09 05:58] LABS: Hematocrit 24.9 % (37-47); Hemoglobin 7.8 g/dL (12.0-15.0)
[2023-06-09] MEDS: Carvedilol 6.25 MG Tablet PO ×2 (08:51→16:56)
[2023-06-09] MEDS: Iron Polysaccharide Complex 150 MG CAPSULE PO (08:52)
[2023-06-09] MEDS: Magnesium Chloride 64 MG Delay Rel.Tablet 128 MG PO (08:52)
[2023-06-09] MEDS: Cyanocobalamin 500 MCG Tablet 1000 MCG PO (08:52)
[2023-06-09] MEDS: Losartan Potassium 25 MG Tablet PO (08:52)
[2023-06-09] MEDS: Pantoprazole Sodium 40 MG Tablet PO (08:53)
[2023-06-09] MEDS: Cholecalciferol (VIT D3) 25 MCG TABLET (1,000 UNITS) PO (08:53)
[2023-06-09] MEDS: Ascorbic Acid 500 MG Tablet PO (08:53)
[2023-06-09 08:57] VITALS: BP 112/54; PULSE 82
[2023-06-09] MEDS: Ceftriaxone 2 GM in 0.9% Normal Saline (50mL MB+) 50 ML IV (10:47)
[2023-06-09] MEDS: Colestipol 1 GM TABLET 2 GM PO ×2 (10:47→23:14)
[2023-06-09] MEDS: 0.9% Normal Saline (250mL Bag) 250 ML 15 ML IV (10:48)
[2023-06-09] MEDS: 0.9 % NaCl (Sterile) Posiflush 10 mL IV (10:48)
[2023-06-09 15:42] VITALS: BP 130/66; PULSE 82; RESP 16; TEMP 37; O2SAT 100
--- NOTE | 2023-06-09 16:55 | NURSING ---
Updated and patient in room that staff members have tested positive for covid.
[2023-06-09 21:19] VITALS: PULSE 81; RESP 14; O2SAT 95
[2023-06-09] MEDS: 0.9% Saline Lock 10 ML Syringe IV (21:47)
[2023-06-10 05:47] LABS: Hematocrit 23.9 % (37-47); Hemoglobin 7.6 g/dL (12.0-15.0)
[2023-06-10] MEDS: Enoxaparin 30 MG/0.3 ML Syringe SC (06:51)
[2023-06-10] MEDS: Acetaminophen 500 MG Tablet 1000 MG PO ×3 (06:51→21:28)
[2023-06-10] MEDS: Pantoprazole Sodium 40 MG Tablet PO (08:50)
[2023-06-10] MEDS: Ascorbic Acid 500 MG Tablet PO (08:50)
[2023-06-10] MEDS: Cholecalciferol (VIT D3) 25 MCG TABLET (1,000 UNITS) PO (08:50)
[2023-06-10] MEDS: Losartan Potassium 25 MG Tablet PO (08:51)
[2023-06-10] MEDS: Cyanocobalamin 500 MCG Tablet 1000 MCG PO (08:51)
[2023-06-10] MEDS: Magnesium Chloride 64 MG Delay Rel.Tablet 128 MG PO (08:51)
[2023-06-10] MEDS: Carvedilol 6.25 MG Tablet PO ×2 (08:51→17:38)
[2023-06-10] MEDS: Iron Polysaccharide Complex 150 MG CAPSULE PO (08:52)
[2023-06-10 09:13] VITALS: BP 119/58; PULSE 79
[2023-06-10] MEDS: Ceftriaxone 2 GM in 0.9% Normal Saline (50mL MB+) 50 ML IV (10:57)
[2023-06-10] MEDS: Colestipol 1 GM TABLET 2 GM PO ×2 (10:59→22:50)
[2023-06-10 16:00] VITALS: BP 137/68; PULSE 84; RESP 16; TEMP 36.7; O2SAT 94
--- NOTE | 2023-06-10 16:08 | NURSING ---
Updated family that staff members and patients tested covid positive.
[2023-06-10] MEDS: traMADol 50 MG Tablet PO (21:28)
[2023-06-10] MEDS: Menthol/Lanolin/Calamine/Znox 113 GM Tube 1 APPLIC TOPICAL (21:28)
[2023-06-10 22:00] VITALS: PULSE 77; RESP 16; O2SAT 96
[2023-06-11] MEDS: Acetaminophen 500 MG Tablet 1000 MG PO ×3 (05:47→22:36)
[2023-06-11] MEDS: Enoxaparin 30 MG/0.3 ML Syringe SC (05:47)
[2023-06-11] MEDS: Carvedilol 6.25 MG Tablet PO ×2 (07:46→18:38)
[2023-06-11] MEDS: Cyanocobalamin 500 MCG Tablet 1000 MCG PO (07:46)
[2023-06-11] MEDS: Iron Polysaccharide Complex 150 MG CAPSULE PO (09:01)
[2023-06-11] MEDS: Colestipol 1 GM TABLET 2 GM PO ×2 (09:01→22:34)
[2023-06-11] MEDS: Pantoprazole Sodium 40 MG Tablet PO (09:01)
[2023-06-11] MEDS: Losartan Potassium 25 MG Tablet PO (09:02)
[2023-06-11] MEDS: Cholecalciferol (VIT D3) 25 MCG TABLET (1,000 UNITS) PO (09:02)
[2023-06-11] MEDS: Ascorbic Acid 500 MG Tablet PO (09:02)
[2023-06-11] MEDS: Ceftriaxone 2 GM in 0.9% Normal Saline (50mL MB+) 50 ML IV (09:02)
[2023-06-11] MEDS: Menthol/Lanolin/Calamine/Znox 113 GM Tube 1 APPLIC TOPICAL ×2 (09:02→22:37)
[2023-06-11] MEDS: Magnesium Chloride 64 MG Delay Rel.Tablet 128 MG PO (09:02)
--- NOTE | 2023-06-11 16:02 | PCM.PN.DRR ---
Documented by User: Nando Moran 06/11/23 16:44 TCU RX Drug Regimen Review Subjective/Objective Subjective/Objective: Subjective: 68 year old female with below past medical history hospitalized for right tibia/fibula fracture, underwent insertion nail/oscar intramedullary right tibia 06/02/2023, complicated by right lower extremity puncture wound, admitted to TCU with debility, here for rehabilitation, strengthening, intravenous antibiotics, prior to discharge home with . Objective: Allergies sulfamethoxazole [From Bactrim] Allergy (Mild, Verified 10/21/22 13:23) itchy, swollen lips trimethoprim [From Bactrim] Allergy (Mild, Verified 10/21/22 13:23) itchy, swollen lips Current Medications Generic Name Dose Route Start Last Admin Trade Name Freq PRN Reason Stop Dose Admin Acetaminophen 1,000 mg 06/07/23 22:00 06/11/23 14:21 Acetaminophen 500 Mg Tablet PO 1,000 mg Q8 ESTRELLITA Administration Ascorbic Acid 500 mg 06/08/23 10:00 06/11/23 09:02 Ascorbic Acid 500 Mg Tablet PO 500 mg 1000 ESTRELLITA Administration Calamine/Phenol 1 applic 06/10/23 22:00 06/11/23 09:02 Menthol/Lanolin/Calamine/Znox 113 Gm Tube TOPICAL 1 applic 1000,2200 ESTRELLITA Administration Protocol Carvedilol 6.25 mg 06/07/23 22:00 06/11/23 07:46 Carvedilol 6.25 Mg Tablet PO 6.25 mg BIDCM ESTRELLITA Administration Cholecalciferol 25 mcg 06/08/23 10:00 06/11/23 09:02 Cholecalciferol (Vit D3) 25 Mcg Tablet (1,000 Units) PO 25 mcg DAILY ESTRELLITA Administration Colestipol HCl 2 gm 06/07/23 22:00 06/11/23 09:01 Colestipol 1 Gm Tablet PO 2 gm BID ESTERLLITA Administration Cyanocobalamin 1,000 mcg 06/08/23 08:00 06/11/23 07:46 Cyanocobalamin 500 Mcg Tablet PO 1,000 mcg BREAKFAST ESTRELLITA Administration Enoxaparin Sodium 30 mg 06/08/23 06:00 06/11/23 05:47 Enoxaparin 30 Mg/0.3 Ml Syringe SC 30 mg DAILY@0600 ESTRELLITA Administration Heparin Sodium (Beef Lung) 50 units 06/07/23 21:33 Heparin Pf Lock 10 Units/Ml 50 Units/5 Ml Syringe IV UD PRN PICC Line Heparin Flush Ceftriaxone Sodium 2 gm/ 50 mls @ 100 mls/hr 06/08/23 10:00 06/11/23 10:13 Sodium Chloride IV 07/15/23 21:29 Infused Q24 ESTRELLITA Infusion Sodium Chloride 250 mls @ 15 mls/hr 06/08/23 09:10 06/09/23 12:03 IV 0 mls/hr .[id number] PRN Infusion Additional IVPB Infusion Sodium Chloride 250 mls @ 15 mls/hr 06/08/23 09:10 IV .[id number] PRN Saline Flush Lactobacillus Acidophilus 1 tablet 06/08/23 22:00 06/11/23 09:02 Lactobacillus Acidophilus PO 1 tablet BID ESTRELLITA Administration Losartan Potassium 25 mg 06/08/23 10:00 06/11/23 09:02 Losartan Potassium 25 Mg Tablet PO 25 mg DAILY ESTRELLITA Administration Magnesium Chloride 128 mg 06/08/23 10:00 06/11/23 09:02 Magnesium Chloride 64 Mg Delay Rel.Tablet PO 128 mg DAILY ESTRELLITA Administration Oxycodone HCl 5 mg 06/07/23 21:49 Oxycodone 5 Mg Tablet PO Q4H PRN PRN Pain Score 6-10 Pantoprazole Sodium 40 mg 06/08/23 10:00 06/11/23 09:01 Pantoprazole Sodium 40 Mg Tablet PO 40 mg DAILY ESTRELLIAT Administration Polysaccharide Iron Complex 150 mg 06/08/23 10:00 06/11/23 09:01 Iron Polysaccharide Complex 150 Mg Capsule PO 150 mg DAILY ESTRELLITA Administration Sodium Chloride 10 - 40 ml 06/07/23 21:33 06/09/23 10:48 0.9 % Nacl (Sterile) Posiflush 10 Ml IV 20 ml UD PRN Administration Port access or dressing change Sodium Chloride 10 - 40 ml 06/07/23 21:33 06/09/23 21:47 0.9% Saline Lock 10 Ml Syringe IV 10 ml UD PRN Administration Open End PICC Flush Tramadol HCl 50 mg 06/07/23 21:49 06/10/23 21:28 Tramadol 50 Mg Tablet PO 50 mg Q6H PRN PRN Administration Pain Score 1-5 Tuberculin PPD 0.1 ml 06/15/23 10:00 Tuberculin,Purif.Prot.Deriv. 50 Tu/Ml Vial ID 06/15/23 10:01 X1 ONE Zinc Sulfate 220 mg 06/08/23 10:00 06/11/23 09:02 Zinc Sulfate (50mg Elemental) 220 Mg Capsule PO 220 mg DAILY ESTRELLITA Administration Problem List (Updated 06/07/23 @ 21:[address] Jesse Landry MD) History of rectal cancer (Acute) Hypertension (Chronic) GERD (gastroesophageal reflux disease) (Acute) Puncture wound of right leg excluding thigh (Acute) Debility (Acute) Fracture of right tibia and fibula (Acute) Chronic kidney disease (CKD) (Chronic) Right foot drop (Chronic) Vital Signs Temp Pulse Resp BP Pulse Ox O2 Del Method 98.1 F 77 16 137/68 H 96 Room Air 06/10/23 16:00 06/10/23 22:00 06/10/23 22:00 06/10/23 16:00 06/10/23 22:00 06/10/23 22:00 Oxygen Delivery Method Room Air Weight: 74.616 kg Body Mass Index (BMI) 23.3 Sodium 141 mmol/L (136-145) 06/08/23 05:39 Potassium 4.1 mmol/L (3.5-5.1) 06/08/23 05:39 Chloride 111 mmol/L (98-107) H 06/08/23 05:39 Carbon Dioxide 27.0 mmol/L (21.0-32.0) 06/08/23 05:39 Anion Gap 3 (5-15) L 06/08/23 05:39 BUN 16 mg/dL (7-18) 06/08/23 05:39 Creatinine 1.11 mg/dL (0.55-1.02) H 06/08/23 05:39 Est GFR (MDRD) Af Amer 63 mL/min (>60) 06/08/23 05:39 Est GFR (MDRD) Non-Af 52 mL/min (>60) L 06/08/23 05:39 BUN/Creatinine Ratio 14.4 RATIO (10-20) 06/08/23 05:39 Glucose 104 mg/dL (74-106) 06/08/23 05:39 Assessment/Plan: 1. Pain: acetaminophen 1000 mg PO Q8H, tramadol 50 mg PO Q6H PRN pain (1-5), oxycodone 5 mg PO Q4H PRN pain (6-10). Patient has used 1 dose of tramadol since admission, and 0 doses of oxycodone. Please continue to monitor pain levels, PRN usage, ataxia/syncope/falls (oxycodone/tramadol Beer's criteria), renal function (tramadol Beer's criteria; serum creatinine = 1.11 mg/dL with creatinine clearance ~52 mL/min on 06/08/23), sodium levels (tramadol Beer's criteria; sodium = 141 mmol/L on 06/08/23), LFTs (no LFTs documented), for respiratory depression, drowsiness and constipation. 2. Bowel: colestipol 2 grams PO BID. Please continue to monitor for diarrhea/constipation, last bowel movement documented 06/10/23. 3. Right lower extremity puncture wound: ceftriaxone 2 grams IV Q24H through 07/15/23, lactobacillus 1 tablet PO BID. Please continue to monitor for s/s of infection surrounding puncture wound such as redness/warmth/swelling, WBC count (WBC = 6.4 K/mm3), temperature (recent range 97.6-99.2), and diarrhea. 4. Hypertension: carvedilol 6.25 mg Po BID, losartan 25 mg PO daily. Please continue to monitor for shortness of breath, blood pressure (recently 107-146/46-76), heart rate (73-84), potassium level (potassium = 4.1 mmol/L on 06/08/23), as well as renal function (serum creatinine = 1.11 mg/dL with creatinine clearance ~52 mL/min on 06/08/23). Patients systolic blood pressures have been consistently in the 140's today (06/11/23), if this elevation in blood pressure remains consistent, consider increasing losartan to 50 mg PO daily. 5. Iron deficiency anemia: iron polysaccharide 150 mg PO daily, ascorbic acid 500 mg PO daily. Please continue to monitor Hgb (Hgb = 7.6 g/dL on 06/10/23), iron levels (no documented iron levels this admission), for GI distress including constipation, and abdominal pain, as well as for renal stones. Please consider ordering iron levels to assess iron deficiency if clinically indicated. 6. Vitamin B-12 Deficiency: cyanocobalamin 1000 mg PO daily with breakfast. Please continue to monitor for s/s of vitamin B-12 deficiency including Vitamin B-12 levels (no documented vitamin B-12 level this admission), RBC count (RBC = 2.43 M/mm3 L on 06/08/23), Hgb (Hgb = 7.6 g/dL on 06/10/23), and lack of energy. Please consider ordering a vitamin B-12 level to assess deficiency status if clinically indicated. 7. Hypomagnesemia: magnesium chloride 128 mg PO daily. Please continue to monitor magnesium level (no recent documented magnesium level), and for diarrhea. Please consider ordering magnesium level to assess magnesium chloride dosing if clinically indicated. 8. GERD: pantoprazole 40 mg PO daily. Please continue to monitor for s/s of GERD, diarrhea that could be contributed to clostridium difficile (Beer's criteria), as well as for s/s of bone resorption issues such as fractures (Beer's criteria). 9. DVT prophylaxis: enoxaparin 30 mg SQ daily. Please continue to monitor for s/s of DVT such as redness/warmth/swelling of an extremity as well as for s/s of bleeding, Hemoglobin (Hgb = 7.6 g/dL on 06/10/23), platelet count (Plt = 203 K/mm3), and renal function (serum creatinine = 1.11 mg/dL with creatinine clearance ~52 mL/min on 06/08/23). 10. Vitamin D deficiency: vitamin D3 25 mcg PO daily. Please continue to monitor Vitamin D levels (no documented vitamin D level this admission), as well as for s/s of vitamin D deficiency including weakness and fractures. Please consider ordering a vitamin D level to assess deficiency if clinically indicated. 11. Zinc deficiency: zinc sulfate 220 mg PO daily. Please continue to monitor for s/s of zinc deficiency. 12. Skin maintenance: calmoseptine 1 application topically BID. Please continue to monitor for skin health. Assessment/Plan for indications treated with psychotropic medications: N/A Medical chart and medication regimen reviewed. The following medication irregularities or issues were identified: 1.Hypertension: carvedilol 6.25 mg Po BID, losartan 25 mg PO daily. Please continue to monitor for shortness of breath, blood pressure (recently 107-146/46-76), heart rate (73-84), potassium level (potassium = 4.1 mmol/L on 06/08/23), as well as renal function (serum creatinine = 1.11 mg/dL with creatinine clearance ~52 mL/min on 06/08/23). Patients systolic blood pressures have been consistently in the 140's today (06/11/23), if this elevation in blood pressure remains consistent, consider increasing losartan to 50 mg PO daily. 2. Iron deficiency anemia: iron polysaccharide 150 mg PO daily, ascorbic acid 500 mg PO daily. Please continue to monitor Hgb (Hgb = 7.6 g/dL on 06/10/23), iron levels (no documented iron levels this admission), for GI distress including constipation, and abdominal pain, as well as for renal stones. Please consider ordering iron levels to assess iron deficiency if clinically indicated. 3. Vitamin B-12 Deficiency: cyanocobalamin 1000 mg PO daily with breakfast. Please continue to monitor for s/s of vitamin B-12 deficiency including Vitamin B-12 levels (no documented vitamin B-12 level this admission), RBC count (RBC = 2.43 M/mm3 L on 06/08/23), Hgb (Hgb = 7.6 g/dL on 06/10/23), and lack of energy. Please consider ordering a vitamin B-12 level to assess deficiency status if clinically indicated. 4. Hypomagnesemia: magnesium chloride 128 mg PO daily. Please continue to monitor magnesium level (no recent documented magnesium level), and for diarrhea. Please consider ordering magnesium level to assess magnesium chloride dosing if clinically indicated. 5. Vitamin D deficiency: vitamin D3 25 mcg PO daily. Please continue to monitor Vitamin D levels (no documented vitamin D level this admission), as well as for s/s of vitamin D deficiency including weakness and fractures. Please consider ordering a vitamin D level to assess deficiency if clinically indicated. Date Date of Note:: 06/11/23 Documented by User: Dr. Jesse Landry MD 09/16/23 17:13 TCU RX Drug Regimen Review Provider Comments Provider responsibility Provider Comments to Recommendations by Pharmacy: Agree
[2023-06-12] MEDS: Enoxaparin 30 MG/0.3 ML Syringe SC (06:42)
[2023-06-12] MEDS: Acetaminophen 500 MG Tablet 1000 MG PO ×3 (06:42→22:25)
[2023-06-12] MEDS: Cyanocobalamin 500 MCG Tablet 1000 MCG PO (08:08)
[2023-06-12] MEDS: Carvedilol 6.25 MG Tablet PO ×2 (08:08→16:56)
[2023-06-12] MEDS: Iron Polysaccharide Complex 150 MG CAPSULE PO (08:08)
[2023-06-12] MEDS: Losartan Potassium 25 MG Tablet PO (08:08)
[2023-06-12] MEDS: Cholecalciferol (VIT D3) 25 MCG TABLET (1,000 UNITS) PO (08:09)
[2023-06-12] MEDS: Pantoprazole Sodium 40 MG Tablet PO (08:09)
[2023-06-12] MEDS: Magnesium Chloride 64 MG Delay Rel.Tablet 128 MG PO (08:09)
[2023-06-12] MEDS: Ascorbic Acid 500 MG Tablet PO (08:09)
[2023-06-12] MEDS: Menthol/Lanolin/Calamine/Znox 113 GM Tube 1 APPLIC TOPICAL ×2 (08:13→22:27)
[2023-06-12] MEDS: Colestipol 1 GM TABLET 2 GM PO ×2 (09:21→23:39)
[2023-06-12] MEDS: 0.9 % NaCl (Sterile) Posiflush 10 mL IV ×2 (09:22→10:42)
[2023-06-12] MEDS: Ceftriaxone 2 GM in 0.9% Normal Saline (50mL MB+) 50 ML IV (09:32)
--- NOTE | 2023-06-12 14:56 | NURSING ---
and Pt aware of positive covid cases today.
[2023-06-12 16:00] VITALS: BP 131/80; PULSE 80; RESP 16; TEMP 36.6; O2SAT 97
[2023-06-12 21:35] LABS: Hematocrit 35.6 % (37-47); Hemoglobin 11.1 g/dL (12.0-15.0)
[2023-06-13] MEDS: Enoxaparin 30 MG/0.3 ML Syringe SC (06:08)
[2023-06-13] MEDS: Acetaminophen 500 MG Tablet 1000 MG PO ×3 (06:08→20:38)
--- NOTE | 2023-06-13 07:38 | NURSING ---
Dressing change completed this am to APOLONIA single lumen PICC line. Sterile technique maintained. End cap changed. Flushes w/ ease. Good blood return. Site without redness, warmth, or swelling.
[2023-06-13 09:20] VITALS: BP 128/75; PULSE 83
[2023-06-13] MEDS: Pantoprazole Sodium 40 MG Tablet PO (09:34)
[2023-06-13] MEDS: Magnesium Chloride 64 MG Delay Rel.Tablet 128 MG PO (09:34)
[2023-06-13] MEDS: Losartan Potassium 25 MG Tablet PO (09:34)
[2023-06-13] MEDS: Carvedilol 6.25 MG Tablet PO ×2 (09:36→17:16)
[2023-06-13] MEDS: Cholecalciferol (VIT D3) 25 MCG TABLET (1,000 UNITS) PO (09:36)
[2023-06-13] MEDS: Cyanocobalamin 500 MCG Tablet 1000 MCG PO (09:36)
[2023-06-13] MEDS: Ascorbic Acid 500 MG Tablet PO (09:36)
[2023-06-13] MEDS: Iron Polysaccharide Complex 150 MG CAPSULE PO (09:36)
[2023-06-13] MEDS: 0.9 % NaCl (Sterile) Posiflush 10 mL IV ×2 (09:46→20:39)
[2023-06-13] MEDS: Ceftriaxone 2 GM in 0.9% Normal Saline (50mL MB+) 50 ML IV (09:46)
[2023-06-13] MEDS: Menthol/Lanolin/Calamine/Znox 113 GM Tube 1 APPLIC TOPICAL ×2 (09:51→20:42)
[2023-06-13] MEDS: Colestipol 1 GM TABLET 2 GM PO ×2 (10:29→22:29)
[2023-06-13] MEDS: Petrolatum 33% Tube 1 APPLIC TOPICAL ×2 (11:19→20:43)
--- NOTE | 2023-06-13 14:15 | WOUNDNOTE ---
wound photo: right lower leg
--- NOTE | 2023-06-13 14:16 | WOUNDNOTE ---
wound photo: right lower leg
--- NOTE | 2023-06-13 14:17 | CASEMGMT ---
Social Work Insurance issued a NRD of 06/15. Pt updated and discharge process with insurance explained. FELICIA Marshall
--- NOTE | 2023-06-13 14:18 | NURSING ---
Patient notified that more staff numbers have tested positive for COVID.
[2023-06-13 15:31] VITALS: BP 135/67; PULSE 82; RESP 18; TEMP 37; O2SAT 98
[2023-06-14] MEDS: Enoxaparin 30 MG/0.3 ML Syringe SC (06:23)
[2023-06-14] MEDS: Acetaminophen 500 MG Tablet 1000 MG PO ×3 (06:23→21:08)
[2023-06-14] MEDS: Cyanocobalamin 500 MCG Tablet 1000 MCG PO (08:00)
[2023-06-14] MEDS: Losartan Potassium 25 MG Tablet PO (08:00)
[2023-06-14] MEDS: Pantoprazole Sodium 40 MG Tablet PO (08:00)
[2023-06-14] MEDS: Carvedilol 6.25 MG Tablet PO ×2 (08:00→16:48)
[2023-06-14] MEDS: Ascorbic Acid 500 MG Tablet PO (08:00)
[2023-06-14] MEDS: Cholecalciferol (VIT D3) 25 MCG TABLET (1,000 UNITS) PO (08:00)
[2023-06-14] MEDS: Magnesium Chloride 64 MG Delay Rel.Tablet 128 MG PO (08:00)
[2023-06-14] MEDS: Iron Polysaccharide Complex 150 MG CAPSULE PO (08:00)
[2023-06-14] MEDS: Petrolatum 33% Tube 1 APPLIC TOPICAL ×2 (08:01→21:09)
[2023-06-14] MEDS: Menthol/Lanolin/Calamine/Znox 113 GM Tube 1 APPLIC TOPICAL ×2 (08:02→21:09)
[2023-06-14] MEDS: Loperamide 2 MG Capsule 4 MG PO (09:45)
[2023-06-14] MEDS: traMADol 50 MG Tablet PO (09:45)
[2023-06-14] MEDS: Ceftriaxone 2 GM in 0.9% Normal Saline (50mL MB+) 50 ML IV (09:47)
[2023-06-14] MEDS: 0.9 % NaCl (Sterile) Posiflush 10 mL IV (09:47)
[2023-06-14] MEDS: Colestipol 1 GM TABLET 2 GM PO ×2 (11:04→22:36)
[2023-06-14] MEDS: Miconazole Nitrate 43 GM Bottle 1 APPLIC TOPICAL ×2 (13:55→21:08)
--- NOTE | 2023-06-14 15:16 | CASEMGMT ---
Social Work BIMS () and PHQ-9 (04/21) completed for MDS assessment. Pt explained her trouble falling asleep is new. SW offered to discuss medication intervention with Dr. Pt agreed to natural supplement. Pt noted poor appetite but denied intervention, hoping it will improve. SW left written communication for Dr. Breann Dhillon, GEOLOGICAL MANAGER SECURITY AGENT
[2023-06-14 16:00] VITALS: BP 160/77; PULSE 70; RESP 16; TEMP 36.5; O2SAT 97
[2023-06-14] MEDS: MELATONIN 10 MG TABLET PO (21:08)
[2023-06-15 05:58] LABS: Absolute Lymphocyte Count 1.48 X10^3/uL (0.83-4.51); Basophil# 0.04 X10^3/uL; Basophil% 0.5 % (0-1); Eosinophil# 0.27 X10^3/uL; Eosinophils% 3.7 % (0-5); Hematocrit 34.1 % (37-47); Hemoglobin 10.8 g/dL (12.0-15.0); Lymphocyte # 1.48 X10^3/ul (0.83-4.51); Lymphocyte % 20.1 % (19-41); Mean Corp Hgb Conc 31.7 g/dL (32-36); Mean Corpuscular Hgb 31.1 pg (27.0-32.0); Mean Corpuscular Volume 98.3 fL (81-99); Mean Platelet Vol. 10.4 fl (6.2-12.0); Monocyte# 0.56 X10^3/uL; Monocyte% 7.6 % (0-10); NRBC Flagged by Analyzer 0 % (0-5); Neutrophil # 4.98 X10^3/uL (2.7-7.7); Neutrophil % 67.4 % (47-70); Platelet Count 335 K/mm3 (150-450); RBC Distribution Width CV 13.3 % (11.6-14.6); Red Blood Count 3.47 M/mm3 (4.2-5.4); White Blood Count 7.4 K/mm3 (4.4-11.0)
[2023-06-15] MEDS: Acetaminophen 500 MG Tablet 1000 MG PO ×3 (06:13→21:33)
[2023-06-15] MEDS: Enoxaparin 30 MG/0.3 ML Syringe SC (06:13)
[2023-06-15 06:46] LABS: Anion Gap 3 (5-15); BUN 19 mg/dL (7-18); BUN/Creat Ratio 16.8 RATIO (10-20); Calcium,Total 8.6 mg/dL (8.5-10.1); Chloride 112 mmol/L (98-107); Creatinine, Serum 1.13 mg/dL (0.55-1.02); EST Glomerular Filtration Rate 51 mL/min (>60); Est Glom Filt Rate - Afr Amer 61 mL/min (>60); Estimated Creatinine Clearance 50.81 ml/min; Glucose 95 mg/dL (74-106); Potassium 4.3 mmol/L (3.5-5.1); Sodium Level 142 mmol/L (136-145)
[2023-06-15] MEDS: Carvedilol 6.25 MG Tablet PO ×2 (07:39→17:34)
[2023-06-15] MEDS: Cyanocobalamin 500 MCG Tablet 1000 MCG PO (07:40)
[2023-06-15] MEDS: Miconazole Nitrate 43 GM Bottle 1 APPLIC TOPICAL ×2 (07:41→21:35)
[2023-06-15] MEDS: Menthol/Lanolin/Calamine/Znox 113 GM Tube 1 APPLIC TOPICAL ×2 (07:42→21:35)
[2023-06-15] MEDS: Iron Polysaccharide Complex 150 MG CAPSULE PO (07:44)
[2023-06-15] MEDS: Losartan Potassium 25 MG Tablet PO (07:44)
[2023-06-15] MEDS: Pantoprazole Sodium 40 MG Tablet PO (07:45)
[2023-06-15] MEDS: Magnesium Chloride 64 MG Delay Rel.Tablet 128 MG PO (07:45)
[2023-06-15] MEDS: Cholecalciferol (VIT D3) 25 MCG TABLET (1,000 UNITS) PO (07:46)
[2023-06-15] MEDS: Ascorbic Acid 500 MG Tablet PO (07:47)
[2023-06-15] MEDS: Petrolatum 33% Tube 1 APPLIC TOPICAL (07:48)
[2023-06-15] MEDS: Loperamide 2 MG Capsule 4 MG PO (07:52)
[2023-06-15] MEDS: Tuberculin,Purif.prot.deriv. 50 TU/ML Vial 0.1 ML ID (07:53)
--- NOTE | 2023-06-15 08:41 | NURSING ---
Catalog Library Assistant Note; MDS for 06/14/2023 Complete
[2023-06-15] MEDS: Ceftriaxone 2 GM in 0.9% Normal Saline (50mL MB+) 50 ML IV (13:14)
[2023-06-15] MEDS: Colestipol 1 GM TABLET 2 GM PO ×2 (14:09→22:39)
--- NOTE | 2023-06-15 14:19 | CASEMGMT ---
Social Work IDT met with patient and for care plan meeting. Discussed patient's progress in PT/OT/SN. Educated to [facility] insurance with NRD 06/15 and continued stay is not guaranteed with each review. Pt returned from appt and received walking boot but for protection only, still NWB. Pt is on IV ATB through 07/15 Q12. However, pt stated after the appt today, the [facility] ID stated her ATB are done 06/17. Nurse to follow up to confirm. Discussed DC plans. Pt will need slideboard, w/c, FWW and BSC, along with HHC. SW to coordinate at DC. Will continue to follow. Breann Dhillon, ISOTOPE TECHNOLOGIST RIVETER
[2023-06-15 16:00] VITALS: BP 142/78; PULSE 73; RESP 14; O2SAT 96
--- NOTE | 2023-06-15 16:10 | NURSING ---
Called and spoke with spouse updated covid precautions and status
--- NOTE | 2023-06-15 17:32 | NURSING ---
pt f/u with Dr. Niño, per his order Ceftriaxone to continue until 06/17/23. Dr Landry aware and agreeable.
--- NOTE | 2023-06-15 18:40 | RAD_ITS ---
STUDY: X-RAY - ABDOMEN/PELVIS REASON FOR EXAM: Female, 68 years old. Abdominal pain, nausea. TECHNIQUE: Two AP supine views of the abdomen and pelvis. COMPARISON: CT of abdomen and pelvis dated April 11, 2019 FINDINGS: Normal visualized lung bases. There is an unremarkable bowel gas pattern. Normal soft tissue structures. Redemonstration of sacral and right hemipelvic pagetoid changes of the bony structures. RAD/Abdomen Single View IMPRESSION: No demonstrated acute process of the abdomen and pelvis. Electronically Signed: Travis Cramer MD at 19:59 EDT ,
[2023-06-15] MEDS: MELATONIN 10 MG TABLET PO (21:34)
[2023-06-15 22:00] VITALS: PULSE 88; RESP 16; O2SAT 96
[2023-06-16] MEDS: Enoxaparin 30 MG/0.3 ML Syringe SC (06:09)
[2023-06-16] MEDS: Acetaminophen 500 MG Tablet 1000 MG PO ×3 (06:09→20:44)
--- NOTE | 2023-06-16 08:45 | WOUNDNOTE ---
wound photo: right ischium/coccyx
[2023-06-16] MEDS: Cyanocobalamin 500 MCG Tablet 1000 MCG PO (09:06)
[2023-06-16] MEDS: Losartan Potassium 25 MG Tablet PO (09:07)
[2023-06-16] MEDS: Colestipol 1 GM TABLET 2 GM PO ×2 (09:07→22:34)
[2023-06-16] MEDS: Cholecalciferol (VIT D3) 25 MCG TABLET (1,000 UNITS) PO (09:07)
[2023-06-16] MEDS: Pantoprazole Sodium 40 MG Tablet PO (09:07)
[2023-06-16] MEDS: Carvedilol 6.25 MG Tablet PO ×2 (09:07→17:45)
[2023-06-16] MEDS: Ascorbic Acid 500 MG Tablet PO (09:07)
[2023-06-16] MEDS: Iron Polysaccharide Complex 150 MG CAPSULE PO (09:08)
[2023-06-16] MEDS: Magnesium Chloride 64 MG Delay Rel.Tablet 128 MG PO (09:08)
[2023-06-16] MEDS: Miconazole Nitrate 43 GM Bottle 1 APPLIC TOPICAL ×2 (09:10→20:45)
[2023-06-16] MEDS: Petrolatum 33% Tube 1 APPLIC TOPICAL ×2 (09:10→20:45)
[2023-06-16] MEDS: Ceftriaxone 2 GM in 0.9% Normal Saline (50mL MB+) 50 ML IV (09:12)
[2023-06-16] MEDS: Menthol/Lanolin/Calamine/Znox 113 GM Tube 1 APPLIC TOPICAL ×2 (09:16→20:46)
--- NOTE | 2023-06-16 14:57 | NURSING ---
Spoke w/ Dr. Pedroza for clarification of ceftriaxone continue medication to 07/15/23 to treat for osteomyelitis. Per MD patient is not treated sufficiently if antibiotic is stopped 06/17. Patient notified
[2023-06-16 15:00] VITALS: BP 117/62; PULSE 89; RESP 16; TEMP 36.9; O2SAT 96
--- NOTE | 2023-06-16 16:23 | NURSING ---
Received Call from Dr. Niño at [facility]. Dr. Niño is original prescriber of CoPAT for patient's Ceftriaxone. Patient is not being treated for osteomyelitis patient r/o osteo and being treated for Open Tib/Fib Fx. Patient is to have medication d/c and PICC Removed. Spoke w/ inhouse ID who is on patient case. Notified of real diagnosis for patient due to patient not having real diagnosis from Dr. Niño on script. Per Dr. Pedroza he is ok w/ d/c of ceftriaxone for treatment of Open Tib/fib fx and ok w/ PICC line removal. RN notified, Orders put in.
[2023-06-16] MEDS: traMADol 50 MG Tablet PO (20:43)
[2023-06-16] MEDS: MELATONIN 10 MG TABLET PO (20:44)
[2023-06-16 20:51] VITALS: PULSE 82; RESP 18; O2SAT 98
[2023-06-17] MEDS: Acetaminophen 500 MG Tablet 1000 MG PO ×3 (05:43→20:54)
[2023-06-17] MEDS: Enoxaparin 30 MG/0.3 ML Syringe SC (05:44)
[2023-06-17] MEDS: Cyanocobalamin 500 MCG Tablet 1000 MCG PO (08:23)
[2023-06-17] MEDS: Magnesium Chloride 64 MG Delay Rel.Tablet 128 MG PO (08:23)
[2023-06-17] MEDS: Pantoprazole Sodium 40 MG Tablet PO (08:23)
[2023-06-17] MEDS: Iron Polysaccharide Complex 150 MG CAPSULE PO (08:24)
[2023-06-17] MEDS: Carvedilol 6.25 MG Tablet PO ×2 (08:24→18:05)
[2023-06-17] MEDS: Ascorbic Acid 500 MG Tablet PO (08:24)
[2023-06-17] MEDS: Cholecalciferol (VIT D3) 25 MCG TABLET (1,000 UNITS) PO (08:25)
[2023-06-17] MEDS: Colestipol 1 GM TABLET 2 GM PO ×2 (08:25→22:00)
[2023-06-17] MEDS: Menthol/Lanolin/Calamine/Znox 113 GM Tube 1 APPLIC TOPICAL ×2 (08:27→20:54)
[2023-06-17] MEDS: Losartan Potassium 25 MG Tablet PO (08:28)
[2023-06-17] MEDS: Petrolatum 33% Tube 1 APPLIC TOPICAL ×2 (08:28→20:54)
[2023-06-17] MEDS: Miconazole Nitrate 43 GM Bottle 1 APPLIC TOPICAL ×2 (08:29→20:54)
--- NOTE | 2023-06-17 08:32 | NURSING ---
emergency charting utilized for 06/17 d\t staffing
--- NOTE | 2023-06-17 14:57 | CASEMGMT ---
Social Work presented to this worker's office requesting outcome from insurance update. Pt approved with NRD 06/21. expressed concern with pt remaining d/t current COVID outbreak. SW acknowledged concerns. would like pt discharged as soon as possible. SW discussed DME and HHC needs. Explained DME companies do not operate over the weekend, that can be processed Tuesday, and offered DC Thursday 06/21. agreed. SW to confirm agreement with IDT as well. expressed understanding. SW offered HHC list with quality and resource data, but has no preference. SW to refer to [facility] [place] slideboard, FWW, w/c w/ELR, drop BSC. Will refer to HHC PT/OT/SN. Plan: DC home with 06/21 with above needs. Breann Dhillon, OSCAR TIN WORKER
[2023-06-17 15:52] VITALS: BP 137/62; PULSE 77; RESP 14; TEMP 36.8; O2SAT 95
--- NOTE | 2023-06-17 20:24 | DS.PCM_ITS ---
Providers Date of Admission: 06/07/23 Primary Care Physician: Dr. Jose L De La Cruz, Consultations 06/07/23 21:30 Consult: Onc/Wound/director telehealth Routine Comment: Reason for Consult:: Buttock wound, patient request 06/08/23 07:32 Consult: Infectious Disease Routine Consulting Provider: Goldy Pedroza Reason for Consult: Wound infection Rt gayle EMERGENT Consult: No MD Notified: Yes Date Notified: 06/08/23 Time Notified: 07:33 Method of Notification: Verbal Reason For Visit: RIGHT TIB/FIB FRACTURE Diagnosis Discharge Diagnosis (1) Fracture of right tibia and fibula: Status: Acute Code(s): S82.201A - Unspecified fracture of shaft of right tibia, initial encounter for closed fracture; S82.401A - Unspecified fracture of shaft of right fibula, initial encounter for closed fracture (2) Puncture wound of right leg excluding thigh: Status: Acute Code(s): S81.831A - Puncture wound without foreign body, right lower leg, initial encounter Plan 68 year old female with below past medical history hospitalized for right tibia/fibula fracture, underwent insertion nail/oscar intramedullary right tibia 06/02/2023, complicated by right lower extremity puncture wound, admitted to TCU with debility, here for rehabilitation, strengthening, intravenous antibiotics, prior to discharge home with . * Debility - PT/OT. * Pain - Tylenol 1000mg q8, Tramadol 50mg q6h prn pain (1-5), Oxycodone 5mg q4h prn pain (6-10). * Bowel - Colestipol 2gm bid. * Adult immunization - Administer pneumonia vaccine, covid19 vaccine, flu vaccine as appropriate. * DVT prophylaxis - Lovenox 30mg sc daily. * Hypertension - Coreg 6.25mg bid, Losartan 25mg daily. * Iron deficiency anemia - Ferrex 150mg daily, Vitamin C 500mg daily. * Vitamin B12 deficiency - B12 1000mcg daily. * Hypomagnesemia - Magnesium chloride 128mg daily. * GERD - Pantoprazole 40mg daily. * Vitamin D deficiency - D3 25mcg daily. * Zinc deficiency - Zinc 50mg daily. * Right lower extremity puncture wound (Proteus Mirabilis) - Ceftriaxone 2gm iv q24h thru 07/15/2023, was on Vancomycin, but not admitting orders, consult Dr. Pedroza. * Urinary retention - straight caths 5 times daily at home, has indwelling sanford catheter, continue indwelling due to debilitated status. * Chronic right buttock pressure ulcer - Healed. Medications at Discharge Home Medications colestipol 1 gram tablet 2 g PO BID Cholesterol 05/11/18 lactobacillus combination no.9 4 billion cell capsule (Adult 50 Plus Probiotic) 4,000 mmu cells PO QDAY Supplement 05/11/18 valsartan 40 mg tablet 40 mg PO DAILY Blood pressure 06/10/20 ascorbate calcium (vitamin C) 500 mg tablet 500 mg PO DAILY Supplement 10/21/22 cholecalciferol (vitamin D3) 25 mcg (1,000 unit) capsule 25 mcg PO DAILY Supplement 10/21/22 magnesium 200 mg tablet 200 mg PO DAILY Supplement 10/21/22 omeprazole 40 mg capsule,delayed release 40 mg PO DAILY Supplement 10/21/22 carvedilol 25 mg tablet (Coreg) 6.25 mg PO BID Blood pressure 06/07/23 cyanocobalamin (vitamin B-12) 100 mcg tablet 100 mcg PO DAILY Supplement 05/27 11/18 d-mannose 500 mg capsule 500 mg PO BID Bladder 06/07/23 ferrous sulfate 325 mg (65 mg iron) tablet (FeroSul) 325 mg PO DAILY Supplement 06/07/23 zinc sulfate 50 mg zinc (220 mg) capsule (Zinc-220) 50 mg PO DAILY Supple 06/07/23 acetaminophen 500 mg tablet 1,000 mg (2 x 500 mg) PO Q8 #0 tabs 06/17/23 tramadol 50 mg tablet 50 mg PO Q6H PRN PRN Pain Score 1-5 7 days #24 tabs 06/17/23 Hospital Course Operations - (See below.) Procedures None Summary of Care Provided Minutes Spent on Discharge: 35 Hospital Course: 68 year old female with below past medical history hospitalized for right tibia/fibula fracture, underwent insertion nail/oscar intramedullary right tibia 06/02/2023, complicated by right lower extremity puncture wound, admitted to TCU with debility, here for rehabilitation, strengthening, intravenous antibiotics, prior to discharge home with . IV Ceftriaxone finished 06/15/2023. Discharge home with 06/21/2023, [employer] Slideboard, Front Wheeled Walker, Wheelchair, with elevated leg rest, drop bedside commode, Home Health Care PT/OT/SN. Physical Exam Const alert General Appearance: cooperative HEENT normocephalic Eyes PERRL and EOMs intact bilaterally Neck supple, no JVD and no carotid bruits Resp normal respiratory effort, normal air movement and clear to auscultation bilaterally Cardio regular rate and regular rhythm GI normal to inspection, nondistended, normoactive bowel sounds, non-tender and non-distended Extremity normal capillary refill Extremity Narrative: Right lower extremity splint. General Extremity: Negative for edema Skin no rashes or lesions noted General Skin Exam: no breakdown Psych affect normal Appearance: appropriate Weight / BMI Weight Weight: 74.616 kg Body Mass Index (BMI) 23.3 ABG / Lab / Microbiology Data 06/15/23 05:23 06/15/23 05:23 Microbiology: Microbiology 06/15/23 06:15 Nasal Secretion SARS-CoV-2 Antigen (Rapid) - Final 06/12/23 06:56 Nasal Secretion SARS-CoV-2 Antigen (Rapid) - Final 06/10/23 06:49 Nasal Secretion SARS-CoV-2 Antigen (Rapid) - Final 06/07/23 22:45 Nasal Secretion SARS-CoV-2 Antigen (Rapid) - Final D/C Instructions Discharge Diet: No restrictions Discharge Activity: Return to Normal Activity, May Shower and Use Walker Weight Bearing Status: No weight bearing (Right lower extremity.) Call your doctor if you observe: Fever of 101 or Higher, Inability to urinate, Inability to have a bowel movement, Shortness of breath, Dizziness, Fainting spells, Swelling in the ankles, Chest pain and Uncontrolled pain Additional Instructions: Discharge home with 06/21/2023, [employer] Slideboard, Front Wheeled Walker, Wheelchair, with elevated leg rest, drop bedside commode, Home Health Care PT/OT/SN. Please Follow Up With: Osvaldo Antony When: As scheduled. Meaningful Use Info Meaningful Use Diagnoses (Choose all that apply): None applicable Discharge Plan Admission Admit Date/Time: 06/07/23 20:21 Primary Reason for Your Visit: Debility. Attending Provider: Jesse Landry Chi Primary Care Provider: Jose L De La Cruz Consulting Providers: Goldy Pedroza Instructions Additional Instructions / Restrictions: Discharge home with 06/21/2023, [employer] Slideboard, Front Wheeled Walker, Wheelchair, with elevated leg rest, drop bedside commode, Home Health Care PT/OT/SN. Discharge Orders/Prescriptions Prescriptions: New tramadol 50 mg Tablet 50 mg PO Q6H PRN PRN (Reason: Pain Score 1-5) 7 Days Qty: 24 0RF acetaminophen 500 mg Tablet 1,000 mg PO Q8 Qty: 0 0RF Continued colestipol 1 gram tablet 2 g PO BID Adult 50 Plus Probiotic 4 billion cell capsule 4,000 mmu cells PO QDAY Hold Instructions: Order Changed valsartan 40 mg tablet 40 mg PO DAILY omeprazole 40 mg capsule,delayed release(DR/EC) 40 mg PO DAILY ascorbate calcium (vitamin C) 500 mg tablet 500 mg PO DAILY cholecalciferol (vitamin D3) 25 mcg (1,000 unit) capsule 25 mcg PO DAILY magnesium 200 mg tablet 200 mg PO DAILY Hold Instructions: Order Changed ferrous sulfate [FeroSul] 325 mg (65 mg iron) tablet 325 mg PO DAILY Patient Comments: TAKE 1 TABLET BY MOUTH EVERY MORNING with food zinc sulfate [Zinc-220] 50 mg zinc (220 mg) capsule 50 mg PO DAILY cyanocobalamin (vitamin B-12) 100 mcg tablet 100 mcg PO DAILY d-mannose 500 mg capsule 500 mg PO BID Rx Instructions: 1 tablet in morning, 2 tablets in evening carvedilol [Coreg] 25 mg tablet 6.25 mg PO BID Hold Instructions: Order Changed Rx Instructions: must administer with a meal/food Discontinued ferrous sulfate 27 mg iron tablet 27 mg PO DAILY Hold Instructions: Order Changed heparin (bovine) 5,000 unit/mL solution 5,000 unit .Route Q12H oxycodone 5 mg tablet 5 mg PO Q8H ceftriaxone 2 gram recon soln 2 g IV Q24H Referrals / Follow Up: Jose L De La Cruz DO [Primary Care Provider] - Disposition Disposition (needs filled in before D/C Order can be placed): Home Health Service
[2023-06-17] MEDS: MELATONIN 10 MG TABLET PO (20:53)
[2023-06-17 22:00] VITALS: PULSE 76; RESP 16; O2SAT 97
--- NOTE | 2023-06-17 22:10 | NURSING ---
PICC to RUE removed. Catheter 36cm in length. Tip intact. Site cleansed and covered w/ DSD. Pt tolerated well.
[2023-06-18] MEDS: Acetaminophen 500 MG Tablet 1000 MG PO ×3 (05:41→21:16)
[2023-06-18] MEDS: Enoxaparin 30 MG/0.3 ML Syringe SC (05:42)
[2023-06-18] MEDS: Cyanocobalamin 500 MCG Tablet 1000 MCG PO (07:45)
[2023-06-18] MEDS: Carvedilol 6.25 MG Tablet PO ×2 (07:47→16:14)
[2023-06-18] MEDS: Magnesium Chloride 64 MG Delay Rel.Tablet 128 MG PO (09:50)
[2023-06-18] MEDS: Pantoprazole Sodium 40 MG Tablet PO (09:50)
[2023-06-18] MEDS: Losartan Potassium 25 MG Tablet PO (09:50)
[2023-06-18] MEDS: Iron Polysaccharide Complex 150 MG CAPSULE PO (09:50)
[2023-06-18] MEDS: Miconazole Nitrate 43 GM Bottle 1 APPLIC TOPICAL ×2 (09:51→22:04)
[2023-06-18] MEDS: Ascorbic Acid 500 MG Tablet PO (09:52)
[2023-06-18] MEDS: Cholecalciferol (VIT D3) 25 MCG TABLET (1,000 UNITS) PO (09:52)
[2023-06-18] MEDS: Petrolatum 33% Tube 1 APPLIC TOPICAL ×2 (09:55→22:06)
[2023-06-18] MEDS: Menthol/Lanolin/Calamine/Znox 113 GM Tube 1 APPLIC TOPICAL ×2 (09:56→22:05)
[2023-06-18] MEDS: Colestipol 1 GM TABLET 2 GM PO ×2 (10:44→22:03)
[2023-06-18 14:57] VITALS: BP 112/69; PULSE 88; RESP 14; TEMP 37.2; O2SAT 96
[2023-06-18] MEDS: MELATONIN 10 MG TABLET PO (21:15)
[2023-06-19] MEDS: Acetaminophen 500 MG Tablet 1000 MG PO ×3 (05:59→21:14)
[2023-06-19] MEDS: Enoxaparin 30 MG/0.3 ML Syringe SC (05:59)
[2023-06-19] MEDS: Cholecalciferol (VIT D3) 25 MCG TABLET (1,000 UNITS) PO (09:43)
[2023-06-19] MEDS: Iron Polysaccharide Complex 150 MG CAPSULE PO (09:43)
[2023-06-19] MEDS: Losartan Potassium 25 MG Tablet PO (09:43)
[2023-06-19] MEDS: Pantoprazole Sodium 40 MG Tablet PO (09:43)
[2023-06-19] MEDS: Cyanocobalamin 500 MCG Tablet 1000 MCG PO (09:43)
[2023-06-19] MEDS: Magnesium Chloride 64 MG Delay Rel.Tablet 128 MG PO (09:43)
[2023-06-19] MEDS: Ascorbic Acid 500 MG Tablet PO (09:44)
[2023-06-19] MEDS: Carvedilol 6.25 MG Tablet PO ×2 (09:45→15:59)
[2023-06-19] MEDS: Miconazole Nitrate 43 GM Bottle 1 APPLIC TOPICAL ×2 (09:47→21:16)
[2023-06-19] MEDS: Menthol/Lanolin/Calamine/Znox 113 GM Tube 1 APPLIC TOPICAL ×2 (09:47→21:16)
[2023-06-19] MEDS: Petrolatum 33% Tube 1 APPLIC TOPICAL (09:48)
[2023-06-19 10:00] VITALS: PULSE 68; RESP 16; O2SAT 98
[2023-06-19] MEDS: Colestipol 1 GM TABLET 2 GM PO ×2 (10:46→22:42)
[2023-06-19 15:45] VITALS: BP 128/73; PULSE 69; RESP 14; TEMP 36.9; O2SAT 99
[2023-06-19] MEDS: MELATONIN 10 MG TABLET PO (21:14)
[2023-06-20] MEDS: Enoxaparin 30 MG/0.3 ML Syringe SC (06:24)
[2023-06-20] MEDS: Acetaminophen 500 MG Tablet 1000 MG PO ×3 (06:25→21:16)
--- NOTE | 2023-06-20 09:35 | MDS.RN ---
Information for the mds was obtained from review of the clinical record, interview of resident, staff, and direct observation of resident's care.
--- NOTE | 2023-06-20 10:30 | CASEMGMT ---
Social Work Spoke with pt to confirm agreement in [place] 06/21. Pt confirmed. IDT agreeable as well. Educated to [facility] services and DME coordinated for DC. BIMS () and PHQ-9 (11/22) completed for MDS assessment. Breann Dhillon MSW [employer]
[2023-06-20] MEDS: Cholecalciferol (VIT D3) 25 MCG TABLET (1,000 UNITS) PO (10:59)
[2023-06-20] MEDS: Ascorbic Acid 500 MG Tablet PO (10:59)
[2023-06-20] MEDS: Magnesium Chloride 64 MG Delay Rel.Tablet 128 MG PO (10:59)
[2023-06-20] MEDS: Pantoprazole Sodium 40 MG Tablet PO (10:59)
[2023-06-20] MEDS: Carvedilol 6.25 MG Tablet PO ×2 (10:59→16:59)
[2023-06-20] MEDS: Cyanocobalamin 500 MCG Tablet 1000 MCG PO (10:59)
[2023-06-20] MEDS: Miconazole Nitrate 43 GM Bottle 1 APPLIC TOPICAL ×2 (10:59→21:15)
[2023-06-20] MEDS: Losartan Potassium 25 MG Tablet PO (10:59)
[2023-06-20] MEDS: Iron Polysaccharide Complex 150 MG CAPSULE PO (10:59)
[2023-06-20] MEDS: Menthol/Lanolin/Calamine/Znox 113 GM Tube 1 APPLIC TOPICAL ×2 (11:00→21:15)
[2023-06-20] MEDS: Petrolatum 33% Tube 1 APPLIC TOPICAL ×2 (11:01→21:14)
[2023-06-20] MEDS: Colestipol 1 GM TABLET 2 GM PO ×2 (12:23→22:27)
[2023-06-20 16:00] VITALS: BP 125/71; PULSE 75; RESP 14; TEMP 36.7; O2SAT 97
[2023-06-20] MEDS: MELATONIN 10 MG TABLET PO (21:17)
[2023-06-21] MEDS: Enoxaparin 40 MG/0.4 ML Syringe SC (06:52)
[2023-06-21] MEDS: Acetaminophen 500 MG Tablet 1000 MG PO (06:52)
[2023-06-21] MEDS: Cyanocobalamin 500 MCG Tablet 1000 MCG PO (09:19)
[2023-06-21] MEDS: Losartan Potassium 25 MG Tablet PO (09:19)
[2023-06-21] MEDS: Carvedilol 6.25 MG Tablet PO (09:19)
[2023-06-21] MEDS: Iron Polysaccharide Complex 150 MG CAPSULE PO (09:19)
[2023-06-21] MEDS: Ascorbic Acid 500 MG Tablet PO (09:20)
[2023-06-21] MEDS: Pantoprazole Sodium 40 MG Tablet PO (09:20)
[2023-06-21] MEDS: Magnesium Chloride 64 MG Delay Rel.Tablet 128 MG PO (09:20)
[2023-06-21] MEDS: Cholecalciferol (VIT D3) 25 MCG TABLET (1,000 UNITS) PO (09:20)
[2023-06-21] MEDS: Petrolatum 33% Tube 1 APPLIC TOPICAL (09:21)
[2023-06-21] MEDS: Miconazole Nitrate 43 GM Bottle 1 APPLIC TOPICAL (09:22)
[2023-06-21] MEDS: Menthol/Lanolin/Calamine/Znox 113 GM Tube 1 APPLIC TOPICAL (09:23)
[2023-06-21 09:24] VITALS: BP 129/59; PULSE 66; RESP 16; TEMP 36.8; O2SAT 97
[2023-06-21 09:25] VITALS: PULSE 66; RESP 16; O2SAT 97
--- NOTE | 2023-06-21 09:41 | NURSING ---
WILL REMOVE POWERS WHEN PT BEING DC HOME, PT WANTS TO WAIT UP UNTIL ARRIVES BEFORE REMOVING. PT TO CALL WHEN HE ARRIVES FOR ASSIST
[2023-06-21] MEDS: Colestipol 1 GM TABLET 2 GM PO (10:35)
== END 2023-06-21 12:09 | disposition home health service (06) | DRG 561 ==
PROVIDERS: Admitting Provider Family Medicine Geriatric Medicine; PCP Family Medicine; Visit Provider Family Medicine Geriatric Medicine
DX: S82.201D Unspecified fracture of shaft of right tibia, subsequent encounter for closed fracture with routine healing (principal); D50.9 Iron deficiency anemia, unspecified; I12.9 Hypertensive chronic kidney disease with stage 1 through stage 4 chronic kidney disease, or unspecified chronic kidney disease; N18.9 Chronic kidney disease, unspecified; K21.9 Gastro-esophageal reflux disease without esophagitis; E53.8 Deficiency of other specified B group vitamins; E55.9 Vitamin D deficiency, unspecified; W19.XXXD Unspecified fall, subsequent encounter; M21.371 Foot drop, right foot; Z79.01 Long term (current) use of anticoagulants; S82.401D Unspecified fracture of shaft of right fibula, subsequent encounter for closed fracture with routine healing; S81.831D Puncture wound without foreign body, right lower leg, subsequent encounter; W26.8XXD Contact with other sharp object(s), not elsewhere classified, subsequent encounter; Z79.899 Other long term (current) drug therapy
CPT/HCPCS: 36415; 74018; 80048; 85014; 85018; 85025; 86850; 86900; 86901; 86920; 86922; 87811; 97110; 97162; 97166; 97530; 97535; 97802; J7050; A4216; J0696

== ENCOUNTER 2023-06-11 11:38 | Outpatient (CLI) | payer MEDICARE, SELFPAY ==
[2023-06-11] VITALS (11 sets, daily range): BP systolic 138–154; BP diastolic 60–79; PULSE 73–88; RESP 16–18; TEMP 36.4–36.8; O2SAT 97–100
[2023-06-11] MEDS: Furosemide 20 MG/2 ML VIAL IV (16:30)
== END 2023-06-11 21:10 | disposition home or self-care (01) ==
LOC: MS2OUT 11:40 → PCU 11:42
PROVIDERS: PCP Family Medicine; Referring Provider Family Medicine Geriatric Medicine; Visit Provider Family Medicine Geriatric Medicine
DX: D64.89 Other specified anemias (principal)
CPT/HCPCS: 96374; 36415; 36430; 86850; 86900; 86901; 86920; 86922; P9016; J1940